=== PATIENT | female | born 1970 | race Caucasian/White ===

== ENCOUNTER 2020-01-24 13:48 | Emergency (ER) | payer MEDICARE, MEDICAID, SELFPAY ==
[2020-01-24 14:28] VITALS: BP 101/57; PULSE 74; RESP 18; TEMP 36.6; O2SAT 96; BMI 26.7
--- NOTE | 2020-01-24 14:59 | XR_ITS ---
EXAMINATION: XR SHOULDER, RIGHT CLINICAL INFORMATION: Pain COMPARISON: Previous chest x-ray November 2018 TECHNIQUE: Three views of the right shoulder. FINDINGS: There is an old healed right distal clavicle fracture. No acute fracture is seen. On the Y-view, the humeral head projects superior to the glenoid. Glenohumeral alignment appears normal on the other 2 views and this may be due to patient positioning. Bone alignment is otherwise normal. There is arthritis at the acromioclavicular joint. There is a thoracic scoliosis. Soft tissues are unremarkable. XR/XR shoulder RT min 2V IMPRESSION: Old healed right distal clavicle fracture. Arthritis at the acromioclavicular joint. High position of the humeral head on the Y-view, question artifactual due to patient positioning. If there is concern for abnormal glenohumeral alignment, additional imaging could be performed.
--- NOTE | 2020-01-24 15:12 | ED.PSYCH ---
HPI - Psych General Chief Complaint: Psychiatric Symptoms Stated Complaint: RIGHT SHOULDER PAIN AFTER FALL DOWN 13 STAIRS Time Seen by Provider: 01/24/20 13:58 Source: patient Mode of arrival: EMS Limitations: other ( developmental delay) History of Present Illness HPI Narrative: patient comes to emergency room complaining of acute on chronic right shoulder pain. Patient states she denies any trauma. However, the reason she came to the emergency room is because the patient was sectioned 12 by [facility] at her [facility]. patient seems to be new at his f[facility] and she is not acting well. Patient has been aggressive, at some point had suicidal ideation although the patient denies it, patient is now under Section 12 waiting to be seen by [facility] and possibly will need inpatient bed search MD complaint: other ( behavioral change) Related Data Previous Rx's Medication Instructions Recorded acetaminophen 650 mg 650 mg PO Q8H PRN #30 tab 01/10/20 tablet,extended release albuterol sulfate 90 mcg/actuation 2 puff INHALATION Q6H PRN #8.5 g 01/10/20 aerosol inhaler ascorbate calcium (vitamin C) 500 500 mg PO DAILY #30 tab 01/10/20 mg tablet atorvastatin 10 mg tablet 10 mg PO DAILY #30 tab 01/10/20 cetirizine 10 mg tablet 10 mg PO DAILY #30 tab 01/10/20 cholecalciferol (vitamin D3) 1,250 1,250 mcg PO QWEEK 30 Days #5 cap 01/10/20 mcg (50,000 unit) capsule fluticasone propionate 110 1 puff INHALATION BID #12 g 01/10/20 mcg/actuation HFA aerosol inhaler gabapentin 100 mg capsule 200 mg PO TID 30 Days #180 cap 01/10/20 lisinopril 10 mg tablet 10 mg PO DAILY #30 tab 01/10/20 omeprazole 20 mg capsule,delayed 20 mg PO DAILY #30 cap 01/10/20 release propranolol 60 mg capsule,24 60 mg PO DAILY #30 cap 01/10/20 hr,extended release psyllium husk (aspartame) 3.4 gram 3.4 g PO DAILY #30 ea 01/10/20 oral powder packet sennosides 8.6 mg tablet 8.6 mg PO DAILY #30 tab 01/10/20 cephalexin 500 mg capsule 500 mg PO BID 10 Days #20 cap 01/18/20 cephalexin 500 mg capsule 500 mg PO BID 10 Days #20 cap 01/18/20 magnesium hydroxide 2,400 mg/10 mL 30 ml PO DAILY PRN #1000 ml 01/18/20 oral suspension Allergies Allergy/AdvReac Type Severity Reaction Status Date / Time oxcarbazepine [Trileptal] Allergy Unknown Unknown Verified 01/22/20 14:17 prednisone Allergy Unknown Unknown Verified 01/22/20 14:17 sulfacetamide Allergy Unknown Unknown Verified 01/22/20 14:17 heparin Allergy Unknown Unknown Uncoded 01/22/20 14:17 Heparin Combination Allergy Unknown Unknown Uncoded 01/22/20 14:17 Review of Systems Review of Systems: Constitutional : No Weight loss, No Fever, No Chills, No Night Sweats, No Fatigue, No Malaise ENT/Mouth : No Hearing loss, No Ear Pain, No Nasal Congestion, No Sinus Pain, No Hoarseness, No sore throat, No Rhinorrhea, No Swallowing Difficulty Eyes: No Eye Pain, No Swelling, No Redness, No Foreign Body, No Discharge, No Vision Changes Cardiovascular : No Chest Pain, No SOB, No Dyspnea on Exertion, No Orthopnea, No Edema, No Palpitations Respiratory : No Cough, No Sputum, No Wheezing, No Smoke Exposure, No Dyspnea Gastrointestinal : No Nausea, No Vomiting, No Diarrhea, No Constipation, No abdominal Pain, No Hematochezia, No Melena Genitourinary : no irregular bleeding, No Dysuria, No Urinary Frequency, No Hematuria, No Urinary Incontinence, No Urgency, No Flank Pain, No Urinary Flow Changes, No Hesitancy Musculoskeletal : acute on chronic right shoulder pain, No Myalgias, No Joint Swelling Skin : No Skin Lesions, No rash Neuro : No Weakness, No Numbness, No Paresthesias, No Loss of Consciousness, No Dizziness, No Headache Psych : No Anxiety/Panic, No Depression, No SI/HI/AH/VH, No Social Issues, Heme/Lymph: No Bruising, No Bleeding,No Lymphadenopathy Endocrine : No Polyuria, No Polydipsia, No Temperature Intolerance Yes all other systems are reviewed and are negative REPLACED BY [facility] Past Medical History Medical History Asthma Essential hypertension Gastro-esophageal reflux Generalized anxiety disorder Hyperlipidemia PTSD (post-traumatic stress disorder) PTSD (post-traumatic stress disorder) Surgical History History of section History of colonoscopy History of craniotomy History of facial surgery History of hernia repair Status post craniectomy Family History Family History (Updated 01/22/20 @ 14:27 by BARBRA BinghamA, [facility]) Father CVD (cardiovascular disease) HTN (hypertension) Mother Bipolar disorder Alcohol abuse History of CVA (cerebrovascular accident) HTN (hypertension) Stroke Maternal Grandmother Cancer Paternal Grandmother Diabetes mellitus Sister No problems noted. Son No problems noted. Social History Social History Smoking Status: Never smoker Use of substances other than those prescribed or required for medical reasons: No Advance Directives: Yes Advance Directives Information Provided: No Advance Directives on File: No Physical Exam Vital Signs: Vital Signs: Vital Signs Temp Pulse Resp BP Pulse Ox 01/24/20 16:38 98.9 F 72 20 122/79 95 01/24/20 14:28 97.8 F 74 18 101/57 L 96 Body Mass Index 26.7 Appearance: Alert. Oriented X3. No acute distress. delayed response, secondary to previous CVA Eyes: Pupils equal, round and reactive to light. ENT: Pharynx normal. Neck: Normal inspection. Neck supple. No lymph nodes noted. No crepitus CVS: Normal heart rate and rhythm. Pulses normal. Normal S1 and S2 Respiratory: No respiratory distress. Breath sounds normal. No Wheezing. No rales Abdomen: Soft and nontender. No rigidity. No distention. good BS x4 Skin: Skin warm and dry. Normal skin color. Normal skin turgor. Extremities: No lower extremity edema. no rash, patient has a chronic contracture of the right arm, unable to hold her right arm up, sequela from CVA Neuro: Oriented X 3. No motor deficit. No sensory deficit. Moving all extermities. No slurred speech. Course Course Course Narrative: x-ray was taken, no acute pathology. Patient is waiting to be see by [facility], patient will likely be an inpatient bed search sign-out given to Dr. Merchant. MDM - Psych Restraints Face to Face Assessment: Face to Face Assessment: Current Situation: After assessment of the patient, a review of the pertinent medical record and a discussion with nursing staff, I feel the patient requires a restrain intervention. Reaction To: [] Medical Condition: [] Behavioral State: [] Continued Need: [] Discharge Plan Discharge Clinical Impression: Adjustment disorder Qualifiers: Adjustment disorder type: unspecified type Qualified Code(s): F43.20 - Adjustment disorder, unspecified Prescriptions: No Action Flovent HFA 110 mcg/actuation HFA aerosol inhaler 1 puff inhalation BID Qty: 12 RF: 8 cholecalciferol (vitamin D3) 1,250 mcg (50,000 unit) capsule 1,250 mcg PO QWEEK 30 Days Qty: 5 RF: 6 gabapentin 100 mg capsule 200 mg PO TID 30 Days Qty: 180 RF: 5 ascorbate calcium (vitamin C) 500 mg tablet 500 mg PO DAILY Qty: 30 RF: 6 Metamucil Fiber Singles 3.4 gram powder in packet 3.4 g PO DAILY Qty: 30 RF: 5 albuterol sulfate [Ventolin HFA] 90 mcg/actuation HFA aerosol inhaler 2 puff inhalation Q6H PRN (Reason: shortness of breath or wheezing) Qty: 8.5 RF: 5 propranolol 60 mg capsule,extended release 24 hr 60 mg PO DAILY Qty: 30 RF: 5 lisinopril 10 mg tablet 10 mg PO DAILY Qty: 30 RF: 5 atorvastatin 10 mg tablet 10 mg PO DAILY Qty: 30 RF: 5 omeprazole 20 mg capsule,delayed release(DR/EC) 20 mg PO DAILY Qty: 30 RF: 5 acetaminophen [Tylenol Arthritis Pain] 650 mg tablet extended release 650 mg PO Q8H PRN (Reason: temperature greater than 100 degrees F, headache) Qty: 30 RF: 5 cetirizine 10 mg tablet 10 mg PO DAILY Qty: 30 RF: 5 sennosides [Natural Senna Laxative] 8.6 mg tablet 8.6 mg PO DAILY Qty: 30 RF: 5 magnesium hydroxide [Milk Of Magnesia Concentrated] 2,400 mg/10 mL suspension 30 ml PO DAILY PRN (Reason: constipation) Qty: 1000 RF: 5 cephalexin [Keflex] 500 mg capsule 500 mg PO BID 10 Days Qty: 20 RF: 0 cephalexin [Keflex] 500 mg capsule 500 mg PO BID 10 Days Qty: 20 RF: 0
--- NOTE | 2020-01-24 15:13 | PC.NURSE ---
[phone] berenice kim) bon, brother in law
--- NOTE | 2020-01-24 15:59 | PC.NURSE ---
INTRODUCED SELF TO PT. A&OX3, SPEAKS IN SLURRED FUL LSENTENCES. RESIDUAL SXS FROM CVA IN 2015, RIGHT SIDED WEAKNESS/PARALYSIS. PT CALM &COOPERATIVE. REPORTS BEING HERE FOR BEHAVIOURAL ISSUES AT ALF. HAS BEEN THERE FOR 4 WKS. DENIES SI/HI AT THIS TIME. RECENT INC IN DEPRESSION. TYPICALLY USES WHEELCHAIR. GIVEN SANDWICH AND LIZ ARNIE REQUESTED.
--- NOTE | 2020-01-24 16:01 | PC.NURSE ---
SECTION 12 BY PRISON
--- NOTE | 2020-01-24 16:25 | PC.NURSE ---
faxed & called to [facility]
[2020-01-24 16:38] VITALS: BP 122/79; PULSE 72; RESP 20; TEMP 37.2; O2SAT 95
[2020-01-24 18:53] LABS: Glucose Urine UA NEG (NEG); Leukocyte Esterase Urine NEG (NEG); Nitrite Urine NEG (NEG); PH 5.5 (5.0-8.0); Specific Gravity - Urine <= 1.005 (1.005-1.025); Urine Blood NEG (NEG); Urine Ketones NEG (NEG); Urine Protein NEG (NEG-TRACE)
[2020-01-24 18:55] LABS: Appearance Urine CLEAR; Color Urine YELLOW
[2020-01-24 19:41] VITALS: BP 100/57; PULSE 52; RESP 18; TEMP 36.1; O2SAT 95
--- NOTE | 2020-01-24 20:19 | MHC.CARE ---
CARE team contacted [facility], who report this patient was seen in the community and is already an inpatient bedsearch. Is here for medical clearance and to await placement. Was seen around 1220 today. CARE team updated patient's nurse.
--- NOTE | 2020-01-24 20:26 | PC.NURSE ---
Per [facility]/ SWAT team pt was seen in community and is an inpatient bed search. Pt given food and gingerale as requested, denies other complaints.
[2020-01-25] VITALS (14 sets, daily range): BP systolic 108–134; BP diastolic 63–81; PULSE 62–78; RESP 15–18; TEMP 36.1–37.1; O2SAT 94–99
[2020-01-25] MEDS: lamoTRIgine 100 MG TABLET 400 MG PO ×2 (00:15→09:05)
[2020-01-25] MEDS: lamoTRIgine 100 MG TABLET PO ×2 (00:16→09:05)
[2020-01-25] MEDS: Mirtazapine 15 MG TABLET PO (00:16)
[2020-01-25] MEDS: Gabapentin 100 MG CAPSULE 200 MG PO ×3 (00:17→14:54)
[2020-01-25] MEDS: OLANZapine 5 MG TABLET PO (00:17)
[2020-01-25] MEDS: Doxazosin Mesylate 1 MG TABLET PO (02:00)
--- NOTE | 2020-01-25 03:10 | PC.NURSE ---
Back timed- Pt became upset and tearful around approx 0200, states she doesnt know what is happening and why she is at the hospital, asking to go home. Pt re-oriented, explained process of inpatient bedsearch, and offered comforting measures. Pt given fluids and cold compress for forehead. Pt given tylenol for generalized pain.
[2020-01-25] MEDS: Acetaminophen 325 MG TABLET 650 MG PO (03:17)
--- NOTE | 2020-01-25 07:59 | PC.NURSE ---
Pt eating breakfast at this time. Calm and cooperative. Plan of bedsearch discussed with pt, however pt denies si or hi at this time. Difficult to understand, pt noted with garbled speech and word salad at times but does communicate this is baseline for her since CVA with right sided weakness. Tolerating breakfast well. Purewick in use and approx 200ml of dark urine in canister at this time.Pt obsever for safety
[2020-01-25] MEDS: Propranolol HCL LA 60 MG CAP.SA.24H PO (09:03)
[2020-01-25] MEDS: lisinopriL 10 MG TABLET PO (09:06)
[2020-01-25] MEDS: Loratadine 10 MG TABLET PO (09:07)
[2020-01-25] MEDS: Sennosides 8.6 MG TABLET PO (09:08)
[2020-01-25] MEDS: Sertraline HCL 25 MG TABLET PO (09:08)
[2020-01-25] MEDS: Omeprazole 20 MG CAPSULE.DR PO (09:08)
[2020-01-25] MEDS: Atorvastatin Calcium 10 MG TABLET PO (09:08)
[2020-01-25] MEDS: cephALEXin 500 MG CAPSULE PO (09:09)
[2020-01-25] MEDS: Ascorbic Acid 500 MG TABLET PO (09:09)
--- NOTE | 2020-01-25 10:23 | PC.NURSE ---
Pt repositioned on side, purewick changed.
--- NOTE | 2020-01-25 14:08 | PC.NURSE ---
Speaking with Bill on phone at this time
--- NOTE | 2020-01-25 16:54 | PC.NURSE ---
[facility] by [facility], confirms pt is section 12 bedsearch. Reports intermittent SI to [facility] and states difficulty with adjusting to new situations and only at [facility] x 3 weeks. No plan for SI per [facility]. Pt observer maintained for saefty
--- NOTE | 2020-01-25 20:51 | PC.NURSE ---
PT REMAINS ON 1:1 OBS. PT CALM AND COOPERATIVE IN ROOM AT THIS TIME. DENIES COMPLAINTS
--- NOTE | 2020-01-25 23:00 | PC.NURSE ---
pt incontinent of urine, cleaned and changed. new periwick applied. pt is confused, not making sense at this time. rambling about things that are not pertinent to events at hand.
[2020-01-26] VITALS (7 sets, daily range): BP systolic 107–124; BP diastolic 67–74; PULSE 74–81; RESP 15–22; TEMP 36.5–36.9; O2SAT 93–97
--- NOTE | 2020-01-26 03:35 | PC.NURSE ---
Patient's last night 2100 medication were not administered, attempted to check nurses's note, no notes pertaining to HS medication found, patient could have refused the meds but she is so confused to answer the question. Charge nurse notified.
[2020-01-26] MEDS: Gabapentin 100 MG CAPSULE 200 MG PO ×3 (09:00→22:02)
[2020-01-26] MEDS: Omeprazole 20 MG CAPSULE.DR PO (09:03)
[2020-01-26] MEDS: lamoTRIgine 100 MG TABLET PO ×2 (09:03→22:06)
[2020-01-26] MEDS: lamoTRIgine 100 MG TABLET 400 MG PO ×2 (09:05→22:03)
[2020-01-26] MEDS: Atorvastatin Calcium 10 MG TABLET PO (09:06)
[2020-01-26] MEDS: Loratadine 10 MG TABLET PO (09:06)
[2020-01-26] MEDS: Ascorbic Acid 500 MG TABLET PO (09:06)
[2020-01-26] MEDS: lisinopriL 10 MG TABLET PO (09:06)
[2020-01-26] MEDS: Sennosides 8.6 MG TABLET PO (09:06)
[2020-01-26] MEDS: cephALEXin 500 MG CAPSULE PO ×2 (09:06→22:02)
[2020-01-26] MEDS: Sertraline HCL 25 MG TABLET PO (09:06)
[2020-01-26] MEDS: Propranolol HCL LA 60 MG CAP.SA.24H PO (09:43)
--- NOTE | 2020-01-26 10:09 | PC.NURSE ---
URINE LEAKING AROUND PUREWICK. PUREWICK REPLACED. PT CLEANED AND LINENS CHANGED.
[2020-01-26] MEDS: diphenhydrAMINE HCL 25 MG TABLET 50 MG PO (10:45)
--- NOTE | 2020-01-26 10:51 | PC.NURSE ---
Addendum entered by Katelin Davalos 01/26/20 12:11: PT HAS RAISED RED HIVES OVER LEGS, ABD, CHEST, AND A FEW TO LOWER ARMS. PER PT, THESE ARE NOT NEW, BUT C/O ITCHINESS AND THEM GETTING WORSE NO OTHER S/SX OF ALLERGIC REACTION. PROVIDER AWARE AND EVALUATED PT. Original Note: pt c/o itchiness to rash over legs; medicated with benedryl per emar.
--- NOTE | 2020-01-26 12:00 | PC.NURSE ---
PT HAD BOWEL MOVEMENT; MODERATE ABOUT OF SEMI-FORMED BROWN STOOL. PUREWICK REPLACED, PT CLEANED, LINENS CHANGED. PUREWICK DRAINING CLEAR YELLOW URINE.
--- NOTE | 2020-01-26 12:18 | PC.NURSE ---
PT CONTINUES TO COMPLAIN OF ITCHINESS TO RED WELTS/HIVES. CARMEN OCTOBER AWARE AND PLAN TO MEDICATED WITH SOLUMEDROL, PREDNISONE. IV ACCESS ESTABLISHED PER PROVIDER INSTRUCTION.
[2020-01-26] MEDS: Famotidine/PF 20 MG/2 ML VIAL IVPUSH (12:40)
[2020-01-26] MEDS: methylPREDNISolone Sod Succ/PF 125 MG/2 ML VIAL IVPUSH (12:40)
--- NOTE | 2020-01-26 13:16 | PC.NURSE ---
patients Po christianson, , would like a call back from nurse when available.
--- NOTE | 2020-01-26 14:00 | PC.NURSE ---
update given to pt's , with pt's permission.
--- NOTE | 2020-01-26 14:25 | PC.NURSE ---
pt reports decrease in itchiness to red patches over body. patches appears less raised compared to prior to pepcid, solumedrol.
--- NOTE | 2020-01-26 14:47 | PC.NURSE ---
pt had a large bm and rajat wick container emptied of 450ml of urine
[2020-01-26] MEDS: OLANZapine 5 MG TABLET PO (22:04)
[2020-01-26] MEDS: Doxazosin Mesylate 1 MG TABLET PO (22:47)
[2020-01-26] MEDS: Mirtazapine 15 MG TABLET PO (22:58)
[2020-01-26] MEDS: LORazepam 0.5 MG TABLET PO (23:20)
--- NOTE | 2020-01-26 23:20 | PC.NURSE ---
PATIENT WAS AGITATED AND PROVIDER GAVE AN ORDER FOR 1 MG ATIVAN PO. ATIVAN PRN WAS DOCUMENTED IN ERROR BUT NOT GIVEN OR REMOVED FROM [facility]IS. PATIENT WAS GIVEN PRESCRIBED MEDICATION OF LORAZEPAM 1 MG PO NOTED IN EMAR.
[2020-01-26] MEDS: LORazepam 1 MG TABLET PO (23:42)
[2020-01-27] VITALS (13 sets, daily range): BP systolic 89–124; BP diastolic 48–78; PULSE 72–86; RESP 15–20; TEMP 36.7; O2SAT 94–97
--- NOTE | 2020-01-27 00:16 | PC.NURSE ---
PATIENT BECAME AGITATED FOR REASONS THAT WERE NOT CLEAR. PATIENT BEGAN BY SAYING SHE WANTED THE CURTAIN CLOSED AND GOT UPSET WHEN I TOLD HER THAT SHE NEEDED TO HAVE IT OPEN BECAUSE SHE WAS ON BECAUSE SHE HAD SUICIDAL IDEATION UPON ARRIVAL TO ED ON WEDNESDAY. SHE THEN STATED THAT SHE WANTED TO HAVE HER BED TURNED AROUND. PATIENT'S BED TURNED AROUND AND PATIENT STILL UPSET. PATIENT MEDICATED WITH ATIVAN FOR AGITATION. AFTER ABOUT 1/2 HOUR PATIENT FINALLY AGREED TO HAVE HER BED TURNED AROUND AND LINENS AND BRANDAN WERE CHANGED. PATIENT SEEM TO SETTLE DOWN AND DE-ESCALATED.
[2020-01-27] MEDS: Sennosides 8.6 MG TABLET PO (08:24)
[2020-01-27] MEDS: cephALEXin 500 MG CAPSULE PO ×2 (08:24→20:28)
[2020-01-27] MEDS: lamoTRIgine 100 MG TABLET PO ×2 (08:24→20:29)
[2020-01-27] MEDS: Ascorbic Acid 500 MG TABLET PO (08:24)
[2020-01-27] MEDS: Omeprazole 20 MG CAPSULE.DR PO (08:24)
[2020-01-27] MEDS: Gabapentin 100 MG CAPSULE 200 MG PO ×3 (08:25→20:28)
[2020-01-27] MEDS: Sertraline HCL 25 MG TABLET PO (08:25)
[2020-01-27] MEDS: lisinopriL 10 MG TABLET PO (08:25)
[2020-01-27] MEDS: lamoTRIgine 100 MG TABLET 400 MG PO ×2 (08:25→20:29)
[2020-01-27] MEDS: Atorvastatin Calcium 10 MG TABLET PO (08:25)
[2020-01-27] MEDS: Loratadine 10 MG TABLET PO (10:40)
[2020-01-27] MEDS: Propranolol HCL LA 60 MG CAP.SA.24H PO (10:40)
--- NOTE | 2020-01-27 10:57 | PC.NURSE ---
patient linens and clothing changed.
--- NOTE | 2020-01-27 17:04 | PC.NURSE ---
JASONN called and talked to patient over the phone for Re-eval, to continue bed search.
[2020-01-27] MEDS: Doxazosin Mesylate 1 MG TABLET PO (20:28)
[2020-01-27] MEDS: Mirtazapine 15 MG TABLET PO (20:28)
[2020-01-27] MEDS: OLANZapine 5 MG TABLET PO (20:29)
[2020-01-28] VITALS (7 sets, daily range): BP systolic 86–108; BP diastolic 55–66; PULSE 76–80; RESP 12–16; TEMP 36.8; O2SAT 93–95
--- NOTE | 2020-01-28 08:30 | PC.NURSE ---
pt ambulated to restroom using 2 hands on assist w slow, steady gait. pt had large, formed bm. sts feeling much relief. ambulated back to room w/o incident. bed linens replaced. pt very appreciative, pleasant affect w this rn. ate all of breakfast, wctm.
[2020-01-28] MEDS: Fluticasone Propionate 100 MCG BLST.W.DEV 1 PUFF INHALE ×2 (09:22→20:22)
[2020-01-28] MEDS: Gabapentin 100 MG CAPSULE 200 MG PO ×3 (09:24→21:19)
[2020-01-28] MEDS: Loratadine 10 MG TABLET PO (09:24)
[2020-01-28] MEDS: Atorvastatin Calcium 10 MG TABLET PO (09:24)
[2020-01-28] MEDS: Sertraline HCL 25 MG TABLET PO (09:24)
[2020-01-28] MEDS: Sennosides 8.6 MG TABLET PO (09:24)
[2020-01-28] MEDS: Ascorbic Acid 500 MG TABLET PO (09:24)
[2020-01-28] MEDS: lamoTRIgine 100 MG TABLET 400 MG PO ×2 (09:25→21:19)
[2020-01-28] MEDS: lamoTRIgine 100 MG TABLET PO ×2 (09:26→21:19)
[2020-01-28] MEDS: lisinopriL 10 MG TABLET PO (09:26)
[2020-01-28] MEDS: Omeprazole 20 MG CAPSULE.DR PO (09:26)
[2020-01-28] MEDS: Propranolol HCL LA 60 MG CAP.SA.24H PO (09:53)
[2020-01-28] MEDS: cephALEXin 500 MG CAPSULE PO ×2 (10:03→21:19)
--- NOTE | 2020-01-28 10:16 | PC.NURSE ---
PT INCONTINENT OF URINE, LINENS REPLACED, PUREWICK IN PLACE AT THIS TIME.
[2020-01-28] MEDS: diphenhydrAMINE HCL 25 MG TABLET PO ×2 (12:29→17:10)
--- NOTE | 2020-01-28 12:42 | PC.NURSE ---
awaiting hydrocortisone cream from pharmacy, pt ambulated to restroom again using 2 assist w slow steady gait.
[2020-01-28] MEDS: Hydrocortisone 1 % Cream 28.35 GM TUBE 1 APPL TOPICAL (15:10)
--- NOTE | 2020-01-28 15:12 | PC.NURSE ---
pt given ordered cream for itching, pt very appreciative. pt continues to have bright affect, no apparent distress att.
--- NOTE | 2020-01-28 17:18 | PC.NURSE ---
pt given benadryl per request for itching. pt now has prn order for benadryl as needed. wctm for effectiveness.
--- NOTE | 2020-01-28 18:19 | PC.NURSE ---
pt sitting up eating dinner, nad. vacuum canister emptied of urine from [employer],
--- NOTE | 2020-01-28 20:00 | PC.NURSE ---
pt awake and alert, requested to use bathroom. pt assisted with stand and pivot to wc and to bathroom. pt not safe ambulating, angle of right foot out of brace. linen and gown changed. pt refusing to use peerwick.
[2020-01-28] MEDS: Mirtazapine 15 MG TABLET PO (21:19)
[2020-01-28] MEDS: OLANZapine 5 MG TABLET PO (21:19)
--- NOTE | 2020-01-28 21:38 | PC.NURSE ---
pt's BP STILL BORDERLINE, WILL REASSESS EVERY HOUR FOR THE NEXT FEW.
[2020-01-29] VITALS (8 sets, daily range): BP systolic 103–119; BP diastolic 48–71; PULSE 72–84; RESP 16–19; TEMP 36.6–37.2; O2SAT 94
--- NOTE | 2020-01-29 00:28 | PC.NURSE ---
pt assist stand and pivot to wc to bathroom and back.
--- NOTE | 2020-01-29 06:35 | PC.NURSE ---
pt needs assist to stand and pivot to wc then to bathroom. hemiparesis/paralysis on right side. do not allow pt to ambulate to bathroom. she has used bathroom x3 last night, no incontinence.
[2020-01-29] MEDS: Fluticasone Propionate 100 MCG BLST.W.DEV 1 PUFF INHALE ×2 (08:16→19:55)
[2020-01-29] MEDS: Propranolol HCL LA 60 MG CAP.SA.24H PO (08:29)
[2020-01-29] MEDS: lamoTRIgine 100 MG TABLET PO ×2 (08:30→20:31)
[2020-01-29] MEDS: lamoTRIgine 100 MG TABLET 400 MG PO ×2 (08:30→20:31)
[2020-01-29] MEDS: lisinopriL 10 MG TABLET PO (08:33)
[2020-01-29] MEDS: Loratadine 10 MG TABLET PO (08:34)
[2020-01-29] MEDS: Sennosides 8.6 MG TABLET PO (08:34)
[2020-01-29] MEDS: Atorvastatin Calcium 10 MG TABLET PO (08:34)
[2020-01-29] MEDS: Sertraline HCL 25 MG TABLET PO (08:34)
[2020-01-29] MEDS: Ascorbic Acid 500 MG TABLET PO (08:35)
[2020-01-29] MEDS: Omeprazole 20 MG CAPSULE.DR PO (08:35)
[2020-01-29] MEDS: Gabapentin 100 MG CAPSULE 200 MG PO ×3 (08:38→20:32)
--- NOTE | 2020-01-29 08:39 | PC.NURSE ---
Pt up to bathroom to void with tech and wheelchair, pivoted to wheelchair and steady during pivot. AM meds administered without incident. Cephalexin held as 10 days from start date has been completed, Keyana MORALES to d/c order Per Keyana MORALES plan for psychiatric nurse practitioner to eval pt in ed to assess if pt able to return back to long-term. Pt aware/agreeable
--- NOTE | 2020-01-29 12:33 | PC.NURSE ---
patient alert to baseline, patient a little agitated/upset as she was trying to state that she wanted the lights on, turned up the lights and redirected the patient, patient gave order for what she wanted for dinner and channel was changed to watch something other than sports, will continue to monitor.
--- NOTE | 2020-01-29 14:24 | PC.NURSE ---
christa from [facility] called wanting an update about patient, update given.
--- NOTE | 2020-01-29 15:13 | PC.NURSE ---
patient medicated per order and given a snack per patient request
--- NOTE | 2020-01-29 18:22 | MHC.CARE ---
CARE team provided support with communicating between [facility] crisis team, PIPE Bray, and pt's in order to clarify timelines for assessments and discuss current plan of care. [facility] reported that they will send a clinician to complete a MSU with pt during 3rd shift, psych consult will take place in the morning, and pt's is in agreement that while he is concerned about his 's stay in the ED being prolonged beyond what is necessary that the best approach will be to address possible change of disposition and treatment planning in the morning. ED provider updated re: communications. Section 12a today, and there is no reported plan for it to be renewed at this time.
--- NOTE | 2020-01-29 18:46 | PC.NURSE ---
called and waned to speak with patient, patient given phone and has been happily speaking with him, patient ate 100% of dinner, will obtain vitals after patient is off phone.
--- NOTE | 2020-01-29 19:15 | PC.NURSE ---
aide was here to speak with patient. at the time they were hear, patient denied any SI
[2020-01-29] MEDS: OLANZapine 5 MG TABLET PO (20:30)
[2020-01-29] MEDS: Mirtazapine 15 MG TABLET PO (20:30)
[2020-01-29] MEDS: Doxazosin Mesylate 1 MG TABLET PO (20:32)
--- NOTE | 2020-01-29 21:47 | PC.NURSE ---
patient alert &oriented x2 p/p, patient took meds whole with soda, patient was oob with assist stand/pivot to wheelchair and to bathroom, patient had no c/o pain or discomfort, sitter at bedside, will continue to monitor.
--- NOTE | 2020-01-29 23:00 | PC.NURSE ---
PILY BLOCK ASSUMES CARE OF PATIENT AT THIS TIME FROM PILY BALDWIN. SITTER AT BEDSIDE. WILL CONTINUE TO MONITOR.
--- NOTE | 2020-01-29 23:35 | PC.NURSE ---
PATIENT SLEEPING AT THIS TIME, NO APPARENT DISTRESS NOTED. SITTER REMAINS AT BEDSIDE. WILL CONTINUE TO MONITOR.
[2020-01-30] VITALS (8 sets, daily range): BP systolic 104–115; BP diastolic 55–73; PULSE 70–81; RESP 16–20; TEMP 36.6–37; O2SAT 94–98
[2020-01-30] MEDS: lamoTRIgine 100 MG TABLET 400 MG PO ×2 (08:37→20:30)
[2020-01-30] MEDS: lamoTRIgine 100 MG TABLET PO ×2 (08:37→20:30)
[2020-01-30] MEDS: Loratadine 10 MG TABLET PO (08:38)
[2020-01-30] MEDS: Atorvastatin Calcium 10 MG TABLET PO (08:38)
[2020-01-30] MEDS: Ascorbic Acid 500 MG TABLET PO (08:39)
[2020-01-30] MEDS: Gabapentin 100 MG CAPSULE 200 MG PO ×3 (08:39→20:32)
[2020-01-30] MEDS: lisinopriL 10 MG TABLET PO (08:39)
[2020-01-30] MEDS: Sertraline HCL 25 MG TABLET PO (08:40)
[2020-01-30] MEDS: Sennosides 8.6 MG TABLET PO (08:40)
[2020-01-30] MEDS: Omeprazole 20 MG CAPSULE.DR PO (08:40)
[2020-01-30] MEDS: Propranolol HCL LA 60 MG CAP.SA.24H PO (08:41)
[2020-01-30] MEDS: Fluticasone Propionate 100 MCG BLST.W.DEV 1 PUFF INHALE ×2 (08:42→20:34)
--- NOTE | 2020-01-30 09:08 | PC.NURSE ---
[facility] informed of need for re eval, pt wants to go home and denies si
--- NOTE | 2020-01-30 09:50 | PC.NURSE ---
Patient received correct dose of ergocalciferol on Wednesday administered by Froylan NASCIMENTO. Given 1 capsule at 1.25mg.
--- NOTE | 2020-01-30 12:59 | PC.NURSE ---
DANN Hernandez- the volunteer services manager from [facility] called- contact number is [phone], he is interested in setting up a planning meeting for the patient for [facility], he also wishes to have her patient stay records sent to him but would like a call back, will notify case management.
--- NOTE | 2020-01-30 13:31 | PC.NURSE ---
Addendum entered by Antoinette Cheek 01/30/20 13:36: marjan stated that if the physician or psych consult clears the patient for discharge back to detention to just call N back and let them now the number to call back is [phone] Original Note: case advocate stated that N must be called, called [facility]- spoke with haim, she stated that she has spoken with David earlier this morning and told him that the clinician will do a re-eval and [facility] will notify him to coordinate things further. [facility] has not seen the patient as of yet to do the re-eval today.
--- NOTE | 2020-01-30 13:40 | PC.NURSE ---
psych Shantal from psych is here to speak with patient
--- NOTE | 2020-01-30 14:01 | PM.PSYCN ---
History of Present Illness Chief Complaint: RIGHT SHOULDER PAIN AFTER FALL DOWN 13 STAIRS Reason for Consult: Disposition recommendation Requesting physician: Keyana Nelson Discussed with referring provider: Yes Sources of Information: patient interviewed and chart reviewed HPI Narrative: Patient is a 49 year old female who resides at nursing home, currently in main ED awaiting psychiatric admission following aggressive behaviors and suicidal statements at nursing home. DDS client. has been at nursing home a little over a week. Pt was initially assessed by crisis team several days ago who recommended psychiatric admission. Since time of initial eval, patient has been reported to have been in behavioral control, denies suicidal ideation, and asking to be discharged. Consult requested as it is unclear when crisis evaluation team will be available to reassess patient. Pt seen in room 13 of main ED. Awake, alert and engaged in interview. Pt very bright and pleasant, some challenges for this administrative underwriter to fully understand patient at times due to speech/articulation impairment. Pt able to express that she has no thoughts of harming herself or others, acknowledges that she was upset in the moment, but I don;t feel that way anymore . Discussed alternatives when feeling upset or angry and patient referred to having goals and using those as well as talking to someone at the residence. Past Psychiatric History: Not reviewed Crisis evaluation unavailable at time of interview It is noted that patient is connected to outpt services Medical Evaluation Reviewed: Yes Review of Systems Psychiatric: Denies depression, Denies hopelessness, Denies irritability, Denies homicidal ideation and Denies suicidal ideation [facility] Medical History Asthma Essential hypertension Gastro-esophageal reflux Generalized anxiety disorder Hyperlipidemia PTSD (post-traumatic stress disorder) PTSD (post-traumatic stress disorder) Surgical History History of section History of colonoscopy History of craniotomy History of facial surgery History of hernia repair Status post craniectomy Diagnostics Vital Signs (24Hr): Vital Signs - 24 hr 01/29/20 18:49 01/29/20 20:32 01/30/20 00:00 Temperature 97.9 F Pulse Rate 84 79 Respiratory Rate 18 16 Blood Pressure 119/62 104/57 L Pulse Oximetry 94 01/30/20 08:39 01/30/20 08:41 11/03/20 08:46 Temperature Pulse Rate 81 81 81 Respiratory Rate Blood Pressure 115/73 115/73 115/73 Pulse Oximetry 98 01/30/20 11:36 Temperature 98.6 F Pulse Rate 77 Respiratory Rate 18 Blood Pressure 109/68 Pulse Oximetry 95 Body Mass Index 26.7 Imaging Radiology Impressions: ITS Impressions Shoulder X-Ray 01/24/20 14:59 IMPRESSION: Old healed right distal clavicle fracture. Arthritis at the acromioclavicular joint. High position of the humeral head on the Y-view, question artifactual due to patient positioning. If there is concern for abnormal glenohumeral alignment, additional imaging could be performed. Mental Status Exam Mental Status Exam Patient Appearance: Appropriate Patient Orientation: Person, Place and Situation Level of Consciousness: Awake and Appropriate Patient Behavior: Appropriate Mood Description: Calm and Appropriate Affect Description: Calm and Appropriate Speech Pattern: Appropriate and Garbled Delusions: Not Present Thought Process: Goal Oriented Thought Content: positive for [place] Judgement: Fair Medications Medications Current Medications Generic Name Dose Route Start Last Admin Trade Name Freq PRN Reason Stop Dose Admin Acetaminophen 650 mg 01/25/20 08:33 Acetaminophen 325 Mg Tablet PO Q8H PRN temperature greater than 100 degrees F, headache Albuterol Sulfate 2 puff 01/24/20 21:55 Albuterol Sulfate 90 Mcg 8 Gm Inhaler INHALE Q6H PRN shortness of breath or wheezing Ascorbic Acid 500 mg 01/25/20 09:00 01/30/20 08:39 Ascorbic Acid 500 Mg Tablet PO 500 mg DAILY SARA Administration Atorvastatin Calcium 10 mg 01/25/20 09:00 01/30/20 08:38 Atorvastatin Calcium 10 Mg Tablet PO 10 mg DAILY SARA Administration Diphenhydramine HCl 25 mg 01/28/20 17:02 Diphenhydramine Hcl 25 Mg Tablet PO TID PRN Itching Doxazosin Mesylate 1 mg 01/24/20 22:00 01/29/20 20:32 Doxazosin Mesylate 1 Mg Tablet PO 1 mg BEDTIME SARA Administration Protocol Ergocalciferol 1.25 mg 02/04/20 10:00 Ergocalciferol (Vitamin D2) 1.25 Mg Capsule PO Wilder@1000 SARA Fluticasone Propionate 1 puff 01/25/20 20:00 01/30/20 08:42 Fluticasone Propionate 100 Mcg Blst.W.Dev INHALE 1 puff RBID SARA Administration Gabapentin 200 mg 01/24/20 22:00 01/30/20 08:39 Gabapentin 100 Mg Capsule PO 200 mg TID SARA Administration Hydrocortisone 1 appl 01/28/20 12:20 01/28/20 15:10 Hydrocortisone 1 % Cream 28.35 Gm Tube TOPICAL 1 appl BID PRN Administration Hives Protocol Lamotrigine 100 mg 01/24/20 22:00 01/30/20 08:37 Lamotrigine 100 Mg Tablet PO 100 mg BID SARA Administration Lamotrigine 400 mg 01/24/20 22:00 01/30/20 08:37 Lamotrigine 100 Mg Tablet PO 400 mg BID SARA Administration Lisinopril 10 mg 01/25/20 09:00 01/30/20 08:39 Lisinopril 10 Mg Tablet PO 10 mg DAILY SARA Administration Protocol Loratadine 10 mg 01/25/20 09:00 01/30/20 08:38 Loratadine 10 Mg Tablet PO 10 mg DAILY SARA Administration Magnesium Hydroxide 30 ml 01/25/20 08:32 Milk Of Magnesia 30 Ml Oral.Susp PO DAILY PRN constipation Mirtazapine 15 mg 01/26/20 22:30 01/29/20 20:30 Mirtazapine 15 Mg Tablet PO 15 mg BEDTIME SARA Administration Olanzapine 5 mg 01/24/20 22:00 01/29/20 20:30 Olanzapine 5 Mg Tablet PO 5 mg BEDTIME SARA Administration Omeprazole 20 mg 01/25/20 09:00 01/30/20 08:40 Omeprazole 20 Mg Capsule.Dr PO 20 mg DAILY SARA Administration Pharmacy Consult 1 each 01/24/20 19:16 Consult Rx Perform Med Rec MISCELLANE ONCE PRN Consult order Propranolol HCl 60 mg 01/25/20 09:00 01/30/20 08:41 Propranolol Hcl La 60 Mg Cap.Sa.24h PO 60 mg DAILY SARA Administration Protocol Psyllium Hydrophilic Mucilloid 3.4 gm 01/25/20 09:00 01/30/20 08:43 Psyllium Seed 3.4 Gm Powd.Pack PO 3.4 gm DAILY SARA Administration Senna 8.6 mg 01/25/20 09:00 01/30/20 08:40 Sennosides 8.6 Mg Tablet PO 8.6 mg DAILY SARA Administration Sertraline HCl 25 mg 01/25/20 09:00 01/30/20 08:40 Sertraline Hcl 25 Mg Tablet PO 25 mg DAILY SARA Administration Allergies Allergies Allergy/AdvReac Type Severity Reaction Status Date / Time oxcarbazepine [Trileptal] Allergy Unknown Unknown Verified 01/22/20 14:17 prednisone Allergy Unknown Unknown Verified 01/22/20 14:17 sulfacetamide Allergy Unknown Unknown Verified 01/22/20 14:17 heparin Allergy Unknown Unknown Uncoded 01/22/20 14:17 Heparin Combination Allergy Unknown Unknown Uncoded 01/22/20 14:17 Assessment & Plan Assessment & Plan (1) Adjustment disorder: Status: Acute Code(s): F43.20 - Adjustment disorder, unspecified Recommendations: At this time patient denies thoughts of harming herself or others, future oriented and requesting to go home Risk at this time appears to be low and it would be appropriate to discharge patient back home with current supports already in place Greater than 50% of the session was spent on counseling and/or coordination of care
--- NOTE | 2020-01-30 14:38 | PC.NURSE ---
Spoke to David from S to coordinate discharge, he stated that he reached out to the patients -[facility] and they are unable to take the patient back due to staffing concerns on their end. he has reached out to [facility] and coordinated a meeting between agencies and stated that he will be in touch with the hospital by tomm afternoon to coordinate discharge to [facility] as they are unable to do a discharge today. Again, alcon number is [phone]. Will notify provider as well.
--- NOTE | 2020-01-30 15:26 | MHC.CARE ---
CARE team got MSU from [facility] and placed in ED chart, alerted providers. [facility] reported to t/w they were planning to [facility] pt [facility] with the help of DDS.
--- NOTE | 2020-01-30 16:35 | PC.NURSE ---
patient alert&orientedx2, patient oob with assist to commode, pt has no c/o pain or discomfort, continues to deny SI at this time, will continue to monitor.
[2020-01-30] MEDS: OLANZapine 5 MG TABLET PO (20:30)
[2020-01-30] MEDS: Mirtazapine 15 MG TABLET PO (20:30)
[2020-01-30] MEDS: Doxazosin Mesylate 1 MG TABLET PO (20:30)
--- NOTE | 2020-01-30 22:45 | PC.NURSE ---
patient currently sleeping, will continue to monitor.
[2020-01-31] VITALS (12 sets, daily range): BP systolic 90–132; BP diastolic 49–77; PULSE 70–81; RESP 16–18; TEMP 36.4–36.9; O2SAT 94–99
--- NOTE | 2020-01-31 07:11 | PC.NURSE ---
REPORT TAKEN FROM SEDA NASCIMENTO. PT SITTING UP IN BED EATING BREAKFAST. NO DISTRESS. EATING BREAKFAST AT THIS TIME.
--- NOTE | 2020-01-31 07:18 | PC.NURSE ---
spoke w aide [place] re need for re eval for pt, this was requested yesterday but didnt happen, haim seemed to be unaware that this was requested yesterday, their last eval was on 01/28
[2020-01-31] MEDS: Propranolol HCL LA 60 MG CAP.SA.24H PO (08:15)
[2020-01-31] MEDS: lamoTRIgine 100 MG TABLET PO ×2 (08:17→20:24)
[2020-01-31] MEDS: lamoTRIgine 100 MG TABLET 400 MG PO ×2 (08:17→20:24)
[2020-01-31] MEDS: Sennosides 8.6 MG TABLET PO (08:18)
[2020-01-31] MEDS: lisinopriL 10 MG TABLET PO (08:18)
[2020-01-31] MEDS: Gabapentin 100 MG CAPSULE 200 MG PO ×3 (08:18→20:23)
[2020-01-31] MEDS: Omeprazole 20 MG CAPSULE.DR PO (08:18)
[2020-01-31] MEDS: Ascorbic Acid 500 MG TABLET PO (08:18)
[2020-01-31] MEDS: Loratadine 10 MG TABLET PO (08:18)
[2020-01-31] MEDS: Sertraline HCL 25 MG TABLET PO (08:18)
[2020-01-31] MEDS: Atorvastatin Calcium 10 MG TABLET PO (08:18)
[2020-01-31] MEDS: Hydrocortisone 1 % Cream 28.35 GM TUBE 1 APPL TOPICAL (08:19)
[2020-01-31] MEDS: Fluticasone Propionate 100 MCG BLST.W.DEV 1 PUFF INHALE ×2 (08:25→20:22)
--- NOTE | 2020-01-31 10:55 | MHC.CARE ---
update: Pt is reportedly considered a bedsearch at this time when yesterday CARE team was called by Dora to state pt was working with DDS to go back home. This does not appear to be the dispo according to the bedsearch team today. Pt would benefit from an MSU however N informed a care team staff member than MSU will not be done bedsearch is exhausted. Per yesterday the ED provider was in contact with FRAME BUILDER and ordered a consult based on clinical observations that pts dispo could be discharged home. Per FRAME BUILDER note pt posed low risk for return home to retirement based on that interview at that time. CARE team alerted Behavioral health senior contracts manager.
--- NOTE | 2020-01-31 11:02 | MHC.CARE ---
CARE Team called TARA to follow up on disposition for patient. Spoke with [facility] who is completing the bed search for patient, whom currently 3 different facilities are looking at her records. TARA informed currently is a active bed search for a [facility] admission, and a re-evaluation will be completed when bed search is exhausted as Maria T stated during the call.
--- NOTE | 2020-01-31 11:35 | MHC.CARE ---
Maria T from [facility] called CARE team back with info from yesterday. She reported that she herself informed the ED yesterday that pt was referred to various units and until the bedsearch was exhausted that [facility] would not re-eval pt however of the ED felt strongly that pt was safe to dc back to her nursing home that is their choice and to let N know if they dc pt. She also stated that pts DDS worker told [facility] that he felt pt was safe to dc back to nursing home also. Maria T stated she reviewed this info with a nurse yesterday and then there was no more communication about the case that evening. She was apologetic that the communication has been missed and stated that due to the fact that pt was referred to hospitals currently that the supervisor cook house will not consider the bedsearch exhausted and therefore will not send a clinician out until that point. T/w shared this info w ED provider for reference based on clarification from [facility] this am.
--- NOTE | 2020-01-31 12:08 | PC.NURSE ---
spoke with David regarding DC plan today. stated he is having meeting today with longterm organization regarding pt needs and then will call back RN for plan.
--- NOTE | 2020-01-31 13:59 | PC.NURSE ---
Addendum entered by Nicole Borjas 01/31/20 18:36: spoke with Brunilda earlier this afternoon, she is rn from pt new correction she is supposed to be dc to. pt has been to this correction about 2 months ago and then was moved to one she resides in. Brunilda request is labs could be drawn or PT consults placed for patient as she feels this is not the Cynthia they know at the home. explained to Brunilda that pt appears at baseline and has been medically cleared for quite some time in ED. explained pt physical capabilities at this time and appears baseline for her. Brunilda had stated the earliest possible DC could be Wednesday for patient. relayed this information to Keyana ABRAHAM as well as Ana. Ana had called Brunilda as well and was told she was going to be calling back tonight but this RN has not heard from her. Will pass along to on coming RN, Ana will be calling [facility] in morning for dc plan for patient. Original Note: spoke with David from DDS, stated that worker Brunilda to call this RN regarding pt being transferred to new correction. pt belongings have ti be moved to pt may not be able to be dc to that correction until tomorrow. awaiting to hear from Brunilda.
--- NOTE | 2020-01-31 19:47 | PC.NURSE ---
REPORT TAKEN FROM DIONNE NASCIMENTO, FIRST CONTACT WITH PT. SITTING UP IN BED, SKIN PWD RESPIRATIONS EVEN UNLABORED. DINNER TRAY REMOVED ATE APPROX 50% OF MEAL. ICE WATER PROVIDED. NO COMPLAINTS OFFERED AT THIS TIME. PT OBSERVER AT BEDSIDE FOR SAFETY. POSSIBLE RETURN TO HALFWAY TOMORROW AM.
[2020-01-31] MEDS: OLANZapine 5 MG TABLET PO (20:23)
[2020-01-31] MEDS: Mirtazapine 15 MG TABLET PO (20:24)
--- NOTE | 2020-01-31 20:33 | PC.NURSE ---
FRANCISCO HELD SBP 90. AWARE. ALL OTHER MEDS ADMINISTERED WITHOUT DIFFICULTY.
--- NOTE | 2020-01-31 20:47 | PC.NURSE ---
PATIENT HAD MEDIUM BOWEL MOVEMENT .
--- NOTE | 2020-01-31 23:22 | PC.NURSE ---
REPORT GIVEN TO ORLANDO NASCIMENTO.
--- NOTE | 2020-02-01 01:51 | PC.NURSE ---
PATIENT UP TO COMMODE VOIDED .
[2020-02-01 09:30] VITALS: BP 126/76; PULSE 75
[2020-02-01] MEDS: Sertraline HCL 25 MG TABLET PO (09:30)
[2020-02-01] MEDS: Loratadine 10 MG TABLET PO (09:30)
[2020-02-01] MEDS: lamoTRIgine 100 MG TABLET 400 MG PO (09:30)
[2020-02-01] MEDS: Propranolol HCL LA 60 MG CAP.SA.24H PO (09:30)
[2020-02-01] MEDS: Omeprazole 20 MG CAPSULE.DR PO (09:30)
[2020-02-01] MEDS: lamoTRIgine 100 MG TABLET PO (09:45)
[2020-02-01 09:46] VITALS: BP 126/76; PULSE 75
[2020-02-01] MEDS: Atorvastatin Calcium 10 MG TABLET PO (09:46)
[2020-02-01] MEDS: Ascorbic Acid 500 MG TABLET PO (09:46)
[2020-02-01] MEDS: lisinopriL 10 MG TABLET PO (09:46)
[2020-02-01] MEDS: Sennosides 8.6 MG TABLET PO (09:46)
[2020-02-01] MEDS: Gabapentin 100 MG CAPSULE 200 MG PO ×2 (09:49→16:48)
[2020-02-01] MEDS: Fluticasone Propionate 100 MCG BLST.W.DEV 1 PUFF INHALE ×2 (09:54→20:51)
--- NOTE | 2020-02-01 11:14 | PC.NURSE ---
reached out to care team for retirement contact information.
--- NOTE | 2020-02-01 11:26 | PC.NURSE ---
dashawn from care team will contact care home
--- NOTE | 2020-02-01 11:38 | MHC.CARE ---
CARE Team spoke with Pts former longterm- per longterm CARE Team will need ot speak with to the [facility].. CARE Team awaiting a call back.
[2020-02-01 12:00] VITALS: BP 122/68; PULSE 72; TEMP 36.6
--- NOTE | 2020-02-01 13:02 | MHC.CARE ---
CARE Team received a call from David (S Hand Packer/Packager [phone]) regarding discharge planning. David made aware Pt can't be held over the weekend and ED will need a tentative discharge plan. David to follow up with further information.
--- NOTE | 2020-02-01 13:15 | MHC.CARE ---
CARE Team recieved a call from DDS asking to keep Pt in ED till Wednesday. CARE Team informed DSS we need a tentative discharge plan and Pt can not remain in ED over weekend as its not clinically or medically necessary.
--- NOTE | 2020-02-01 16:13 | MHC.CARE ---
CARE team contacted David @ DDS re: status of finalizing D/C plan for pt to return to [facility] residential program. David reported that during a conversation between pt and the residential program's career development manager pt stated that she wouldn't return to that program claiming that she wasn't aware that she would be going there. Per David, pt had been informed of this by several people since Wednesday01/30/20. Current plan is for David and pt's , Po, to contact pt via 3way phone call to discuss the plan for pt to return to the program, which tentative (hopeful) D/C for Wednesday02/02/20 at 3PM. It was reiterated that pt cannot continue to board in the ED over the weekend, due to the lack of a medical necessity to do so. If a return call for update is not received from David by 4:45PM, this advertising copy writer will reach out again for status update. David did not have address or contact information for [facility]'s [facility] program. If/when information is requiredLoyd Crockett, Director of Res Services at [facility], can be contacted at [phone]
--- NOTE | 2020-02-01 17:03 | MHC.CARE ---
CARE team followed up again with David from [facility]. Phone call with pt went well, and she is agreeable for returning to the program. Program is located on [facility] in [facility] David will be following up with CARE team in the morning with the specific house number and contact information for the program, as well as what time the pt will be able to D/C from ED tomorrow morning for re-admission to the [facility] program.
[2020-02-01 17:28] VITALS: PULSE 76; TEMP 36.6
[2020-02-01 23:55] VITALS: BP 103/73; PULSE 76; RESP 18; TEMP 36.7; O2SAT 94
[2020-02-02] MEDS: OLANZapine 5 MG TABLET PO
[2020-02-02] MEDS: Gabapentin 100 MG CAPSULE 200 MG PO ×2 (00:01→09:30)
[2020-02-02] MEDS: Mirtazapine 15 MG TABLET PO (00:01)
[2020-02-02] MEDS: lamoTRIgine 100 MG TABLET PO ×2 (00:01→09:28)
[2020-02-02] MEDS: lamoTRIgine 100 MG TABLET 400 MG PO ×2 (00:03→09:29)
[2020-02-02 00:04] VITALS: BP 113/68; PULSE 78
[2020-02-02] MEDS: Doxazosin Mesylate 1 MG TABLET PO (00:04)
--- NOTE | 2020-02-02 03:51 | PC.NURSE ---
pt is sleeping sitter present, rr even and reg no s/s of distress. plan of care. [facility] tomorrow
--- NOTE | 2020-02-02 07:32 | PC.NURSE ---
Pt found to be taking sheets off of bed and taking gown off, attempted to redress patient and put new linens on bed, pt continually pulling sheets off of bed. Able to place pt back in hospital attire, but pt unwilling to allow this nurse to put sheets on the bed at this time. Will attempt again.
[2020-02-02 08:00] VITALS: BP 120/75; PULSE 85; RESP 16; TEMP 36.8; O2SAT 95
[2020-02-02] MEDS: Sertraline HCL 25 MG TABLET PO (09:28)
[2020-02-02] MEDS: Omeprazole 20 MG CAPSULE.DR PO (09:28)
[2020-02-02] MEDS: Sennosides 8.6 MG TABLET PO (09:28)
[2020-02-02 09:29] VITALS: BP 120/75; PULSE 95
[2020-02-02] MEDS: Ascorbic Acid 500 MG TABLET PO (09:29)
[2020-02-02] MEDS: Atorvastatin Calcium 10 MG TABLET PO (09:29)
[2020-02-02] MEDS: lisinopriL 10 MG TABLET PO (09:29)
[2020-02-02] MEDS: Loratadine 10 MG TABLET PO (09:29)
[2020-02-02 09:30] VITALS: BP 120/75; PULSE 95
[2020-02-02] MEDS: Propranolol HCL LA 60 MG CAP.SA.24H PO (09:30)
[2020-02-02] MEDS: Fluticasone Propionate 100 MCG BLST.W.DEV 1 PUFF INHALE (09:31)
--- NOTE | 2020-02-02 11:41 | MHC.CARE ---
CARE Team spoke with DDS. Perez to be transported to residence at 4:30pm via ambulance.
[2020-02-02 12:00] VITALS: RESP 16
== END 2020-02-02 17:37 | disposition home or self-care (01) ==
PROVIDERS: Emergency Provider Emergency Medicine
DX: F43.20 Adjustment disorder, unspecified (principal); M25.511 Pain in right shoulder; I10 Essential (primary) hypertension; Z79.899 Other long term (current) drug therapy
CPT/HCPCS: 73030; 81003; 99282; 99285; J2930; Q0163

== ENCOUNTER 2020-02-13 11:34 | Outpatient (REF) | payer MEDICARE, MEDICAID, SELFPAY ==
--- NOTE | 2020-02-13 | MM_ITS ---
EXAMINATION: MM SCREENING DIGITAL MAMMOGRAPHY, BILATERAL CLINICAL INFORMATION: Screening. Asymptomatic. The lifetime risk of breast cancer based on the Tyrer-Cuzick Model is 10%. COMPARISON: Outside mammography, 2-D images: 10/14/2018, 01/12/2017, 11/20/2015 ([facility]). TECHNIQUE: Digital mammography is performed in craniocaudal and mediolateral oblique views along with computer-aided detection (CAD). Additional left cleavage view and right exaggerated CC view are provided. FINDINGS: There are scattered areas of fibroglandular density (ACR BI-RADS breast composition Category b). The left breast is unremarkable. There is no developing density or interval mass or architectural abnormality. There are some scattered punctate calcifications right breast without focal grouping or pleomorphic types. The skin contours are smooth. Right breast has nodularity posterior 2:00 position 12 cm from nipple approximately 5 x 7 mm. There is also a smaller nodule central upper outer right breast, 7 cm from the nipple. Neither finding is demonstrated with certainty on the prior outside 2-D images. MM/MM screening mammo BI IMPRESSION: 1. Right: Nodularity posterior to o'clock and mid upper outer quadrant. 2. Left: No mammographic evidence of malignancy. ASSESSMENT: BI-RADS 0: Incomplete - Need Additional Imaging Evaluation RECOMMENDATION: 1. Additional views of the right breast (Spot CC, Spot MLO). 2. Targeted ultrasound right breast. 3. Radiology department staff will contact the patient for additional imaging. This patient's information was entered into a reminder system with a target due date for their next mammogram.
== END 2020-02-13 11:35 | disposition home or self-care (01) ==
LOC: HO.MAMMO 11:34
PROVIDERS: Visit Provider Internal Medicine
DX: Z12.31 Encounter for screening mammogram for malignant neoplasm of breast (principal)
CPT/HCPCS: 77067

== ENCOUNTER 2020-02-26 13:07 | Outpatient (REF) | payer MEDICARE, MEDICAID, SELFPAY ==
--- NOTE | 2020-02-26 13:04 | CT_ITS ---
EXAMINATION: CT CHEST WITHOUT CONTRAST CLINICAL INFORMATION: Follow-up pulmonary nodules COMPARISON: Previous chest CT December 2018 TECHNIQUE: Multidetector volumetric CT imaging of the chest was done. Axial MIP volume rendering provided. Sagittal and coronal reformatted images were obtained. This CT examination was performed using dose optimization techniques as appropriate, variously including the following: *Automated exposure control *Adjustment of mA and/or kV according to patient size (this includes techniques or standardized protocols for targeted exams where dose is matched to indication/reason for exam; i.e. extremities or head) *Use of iterative reconstruction technique DLP: 242 mGy-cm FINDINGS: LIFTER/DRIVER: LUNGS: Exam is limited due to artifact from respiratory motion. There is left lower lobe atelectasis that is stable. The 2 mm right upper lobe nodule axial image 2:15 series 7 is stable. The 2 mm peripheral or subpleural right lower lobe nodule adjacent to the major fissure axial image 295 series 7 is stable. There is a 3 mm peripheral or subpleural left lower lobe nodule adjacent to the fissure axial image 273 series 3 that is stable. There is a 2 mm peripheral or subpleural left lower lobe nodule adjacent to the fissure axial image 307 series 7 that is not seen on previous exam. MEDIASTINUM: There are small mediastinal lymph nodes that are stable. There is mild to moderate coronary artery calcification. The heart is upper normal in size. There is no pericardial effusion. The ascending thoracic aorta is upper normal in size measuring 4 cm. The aortic arch and descending thoracic aorta are normal in caliber. PLEURA: There is no pleural effusion. No pleural mass or thickening. AXILLA: No chest wall mass or enlarged axillary lymph nodes are seen. UPPER ABDOMEN: Unremarkable. OSSEOUS STRUCTURES: There is a thoracolumbar scoliosis. CT/CT chest wo con IMPRESSION: Limited exam due to artifact from respiratory motion. Newly appreciated 2 mm peripheral or subpleural left lower lobe nodule adjacent to the fissure. Otherwise small pulmonary nodules are stable. Stable left lower lobe subsegmental atelectasis. Upper normal-size heart and ascending thoracic aorta and coronary artery calcification. Severe scoliosis.
== END 2020-02-26 13:08 | disposition home or self-care (01) ==
LOC: HO.CT 13:07
PROVIDERS: Visit Provider Internal Medicine Pulmonary Disease
DX: R91.8 Other nonspecific abnormal finding of lung field (principal)
CPT/HCPCS: 71250

== ENCOUNTER 2020-05-09 12:31 | Outpatient (REF) | payer MEDICARE, MEDICAID, SELFPAY ==
--- NOTE | ~2020-05-09 | US_ITS ---
EXAMINATION: US DIAGNOSTIC ULTRASOUND BREAST, RIGHT CLINICAL INFORMATION: Multiple density superior aspect right breast. COMPARISON: Mammography of same day as well as studies dating back to November 20, 2015. TECHNIQUE: Ultrasound of the breast is performed with real-time lara scale imaging and color Doppler. FINDINGS: Targeted ultrasound evaluation of the superior aspect of the right breast was then performed. At the 10:00 position approximately 8 cm from the nipple there are a few either anechoic or hypoechoic circumscribed structures with increased through sound transmission measuring 2 to 3 mm in size consistent with cysts. Scanning of the medial aspect superiorly did not demonstrate any cystic or solid mass or region of abnormal distal sound shadowing. Results are discussed with the patient at time of visit. US/US breast RT limited IMPRESSION: Multiple small cysts were noted about the lateral aspect of the right breast. No corresponding ultrasound abnormality is seen within the upper inner quadrant for the mammographic well-circumscribed benign-appearing lesion. Recommend 6 month follow-up right breast mammogram. ASSESSMENT: BI-RADS 3: Probably Benign RECOMMENDATION: Six-month follow-up right breast mammography to ensure stability of right breast lesions superiorly, especially upper inner quadrant lesion. This patient's information was entered into a reminder system with a target due date for their next mammogram.
--- NOTE | ~2020-05-09 | MM_ITS ---
EXAMINATION: MM DIAGNOSTIC DIGITAL BREAST TOMOSYNTHESIS, RIGHT CLINICAL INFORMATION: Multiple circumscribed right breast lesions superior aspect. COMPARISON: Mammography: 02/13/2020 and studies dating back to 11/20/2015. TECHNIQUE: Digital breast tomosynthesis is performed. 2D images are generated from the tomosynthesis. The following views are obtained: Spot compression craniocaudal and mediolateral oblique views. FINDINGS: There are scattered areas of fibroglandular density (ACR BI-RADS breast composition Category b). There is persistence of a grouping of 3 circumscribed densities one of which with mildly lobulated borders none of which with suspicious calcifications or spiculation. Maximum size is approximately 4 mm in diameter and these lie within the upper outer quadrant of the right breast. About the upper inner portion of the right breast there is a 5 x 5 mm well-circumscribed density containing a single benign-appearing calcification. Targeted ultrasound evaluation of the superior aspect of the right breast was then performed. At the 10 o'clock position approximately 8 cm from the nipple there are a few either anechoic or hypoechoic circumscribed structures with increased through sound transmission measuring 2-3 mm in size consistent with cysts. Scanning of the medial aspect superiorly did not demonstrate any cystic or solid mass or region of abnormal distal sound shadowing. Results are discussed with the patient at time of visit. MM/MM tomosynthesis added views R IMPRESSION: Multiple small cysts were noted about the lateral aspect of the right breast. No corresponding ultrasound abnormality is seen within the upper inner quadrant for the mammographic well-circumscribed benign-appearing lesion. Recommend six-month follow-up right breast mammogram. ASSESSMENT: BI-RADS 3: Probably Benign. RECOMMENDATION: Six-month follow-up right breast mammography to ensure stability of right breast lesions superiorly, especially upper inner quadrant lesion. This patient's information was entered into a reminder system with a target due date for their next mammogram.
== END 2020-05-09 12:32 | disposition home or self-care (01) ==
LOC: HO.MAMMO 12:31
PROVIDERS: Visit Provider Internal Medicine
DX: N63.12 Unspecified lump in the right breast, upper inner quadrant (principal)
CPT/HCPCS: 76642; 77061; 77065

== ENCOUNTER 2020-05-14 09:59 | Outpatient (REF) | payer MEDICARE, MEDICAID, SELFPAY ==
[2020-05-14 11:20] LABS: MANUAL DIFF FLAG NO
[2020-05-14 11:36] LABS: Basophils Percent Auto 0.2 % (0-2); Hematocrit 41.3 % (37-47); Hemoglobin 12.4 g/dl (12.0-16.0); Imm Gran Abs Auto 0.01 X10*3/uL (0.00-0.03); Imm Gran Pct Auto 0.2 % (0.0-0.4); Lymphocytes Absolute Auto 1.5 X10*3/uL (1.2-4.9); Mean Corpuscular Hemoglobin 25.6 pg (27.0-33.0); Mean Corpuscular Volume 85.2 fL (80-98); Mean Platelet Volume 9.2 fL (9.4-12.3); Monocytes Absolute Auto 0.3 X10*3/uL (0.1-1.2); Monocytes Percent Auto 6.4 % (2-11); Neutrophils Absolute Auto 3.5 X10*3/uL (2.0-8.3); Neutrophils Percent Auto 65.2 % (45-73); Platelet Count 209 X10*3/uL (160-400); Red Blood Count 4.85 X10*6/uL (4.20-5.50); White Blood Count 5.4 X10*3/uL (4.8-10.8)
[2020-05-14 12:00] LABS: Alanine Aminotransferase 16 U/L (0-31); Anion Gap 11 (12-20); Aspartate Amino Transferase 15 U/L (5-31); Blood Urea Nitrogen 15 mg/dL (9-16); Calcium 8.7 mg/dL (8.4-10.2); Carbon Dioxide 31 mmol/L (22-29); Chloride 104 mmol/L (96-108); Cholesterol 213 mg/dL; Estimated Glomerular Filt Rate > 60; Glucose Fasting 84 mg/dL (60-99); HDL Cholesterol 45 mg/dL; LDL Cholesterol Calculated 140 mg/dl; Sodium 142 mmol/L (135-145); Triglycerides 142 mg/dL
== END 2020-05-14 10:00 | disposition home or self-care (01) ==
LOC: HO.HMGCLDS 09:59
PROVIDERS: PCP Internal Medicine; Visit Provider Internal Medicine
DX: Z13.89 Encounter for screening for other disorder (principal)
CPT/HCPCS: 36415; 80048; 80061; 84450; 84460; 85025

== ENCOUNTER 2020-05-14 11:28 | Outpatient (REF) | payer MEDICARE, MEDICAID, SELFPAY | END 2020-05-14 11:29 | disposition home or self-care (01) | LOC: HO.LAB 11:28 | PROVIDERS: Visit Provider Nurse Practitioner Family | DX: N39.0 Urinary tract infection, site not specified (principal); E78.5 Hyperlipidemia, unspecified; I10 Essential (primary) hypertension; I69.359 Hemiplegia and hemiparesis following cerebral infarction affecting unspecified side | CPT/HCPCS: 36415; 80048; 80061; 84450; 84460; 85025; 87086; 87088; 87186 ==

== ENCOUNTER 2020-08-07 10:35 | Outpatient (REF) | payer MEDICARE, MEDICAID, SELFPAY ==
[2020-08-07 14:23] LABS: Glucose Urine UA NEG (NEG); Leukocyte Esterase Urine NEG (NEG); Nitrite Urine NEG (NEG); Specific Gravity - Urine 1.025 (1.005-1.025); Urine Blood NEG (NEG); Urine Ketones NEG (NEG); Urine Protein NEG (NEG-TRACE)
[2020-08-07 14:25] LABS: Alanine Aminotransferase 11 U/L (0-31); Aspartate Amino Transferase 11 U/L (5-31); Cholesterol 170 mg/dL; HDL Cholesterol 35 mg/dL; LDL Cholesterol Calculated 111 mg/dl; Triglycerides 122 mg/dL
[2020-08-07 14:35] LABS: Appearance Urine CLEAR; Color Urine YELLOW
[2020-08-07 14:50] LABS: Vitamin D 25-OH Total 61.2 ng/mL (>30)
== END 2020-08-07 10:36 | disposition home or self-care (01) ==
LOC: HO.HMGCLDS 10:35
PROVIDERS: PCP Internal Medicine; Visit Provider Internal Medicine
DX: G40.309 Generalized idiopathic epilepsy and epileptic syndromes, not intractable, without status epilepticus (principal); E78.5 Hyperlipidemia, unspecified; R35.0 Frequency of micturition; Z78.0 Asymptomatic menopausal state
CPT/HCPCS: 36415; 80061; 81003; 82306; 84450; 84460

== ENCOUNTER 2020-08-14 10:29 | Outpatient (REF) | payer MEDICARE, MEDICAID, SELFPAY ==
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
== END 2020-08-14 10:30 | disposition home or self-care (01) ==
LOC: HO.MAMMO 10:29
PROVIDERS: Visit Provider Internal Medicine
DX: Z13.820 Encounter for screening for osteoporosis (principal); Z78.0 Asymptomatic menopausal state
CPT/HCPCS: 77080

== ENCOUNTER 2020-11-06 14:00 | Outpatient (REF) | payer MEDICARE, MEDICAID, SELFPAY ==
--- NOTE | ~2020-11-06 | MM_ITS ---
EXAMINATION: MM DIAGNOSTIC DIGITAL BREAST TOMOSYNTHESIS, RIGHT CLINICAL INFORMATION: Short interval six-month follow-up probable benign smooth nodularity right breast upper inner and mid outer. Targeted ultrasound suggests probable cysts. The lifetime risk of breast cancer based on the Tyrer-Cuzick Model is 9%. COMPARISON: Mammography: 05/09/2020, 02/13/2020 (BI-RADS 0); ultrasound right breast 05/09/2020; outside mammography: 10/14/2018, 01/12/2017, 11/20/2015 ([facility]). TECHNIQUE: Digital breast tomosynthesis is performed in both the craniocaudal and mediolateral oblique views along with computer-aided detection (CAD). Synthesized 2D images are generated from the tomosynthesis. FINDINGS: There are scattered areas of fibroglandular density (ACR BI-RADS breast composition Category b). The small nodule posterior 2:00 position is slightly decreased in size. Margins are smooth. The small nodule mid upper outer quadrant is stable. Margins are smooth. There is no developing density. Remainder of the breast is unremarkable. No architectural abnormality or abnormal calcifications. Results are provided to the patient at time of visit by the technologist. MM/MM tomosynthesis diagnostic RT IMPRESSION: Benign-appearing nodularity right breast stable to decreased. ASSESSMENT: BI-RADS 3: Probably Benign RECOMMENDATION: Diagnostic mammography at time of annual bilateral exam, due within 6 months. This patient's information was entered into a reminder system with a target due date for their next mammogram.
== END 2020-11-06 14:01 | disposition home or self-care (01) ==
LOC: HO.MAMMO 14:00
PROVIDERS: Visit Provider Internal Medicine
DX: N63.15 Unspecified lump in the right breast, overlapping quadrants (principal)
CPT/HCPCS: 77061; 77065

== ENCOUNTER 2020-12-03 09:51 | Outpatient (REF) | payer MEDICARE, MEDICAID, SELFPAY ==
[2020-12-09 00:51] LABS: Lamotrigine Lamictal 14.2 mcg/mL (4.0-18.0)
== END 2020-12-03 09:52 | disposition home or self-care (01) ==
LOC: HO.HMGCLDS 09:51
PROVIDERS: PCP Internal Medicine; Visit Provider Psychiatry & Neurology Neurology
DX: G40.509 Epileptic seizures related to external causes, not intractable, without status epilepticus (principal); Z79.899 Other long term (current) drug therapy
CPT/HCPCS: 36415; 80175

== ENCOUNTER 2021-01-28 11:24 | Outpatient (REF) | payer MEDICARE, MEDICAID, SELFPAY ==
[2021-01-28 14:01] LABS: Appearance Urine CLEAR; Color Urine STRAW; Glucose Urine UA NEG (NEG); Leukocyte Esterase Urine 1+ (NEG); Nitrite Urine POS (NEG); Specific Gravity - Urine <= 1.005 (1.005-1.025); UACC Culture Trigger YES; Urine Blood NEG (NEG); Urine Ketones NEG (NEG); Urine Protein NEG (NEG-TRACE)
[2021-01-28 14:13] LABS: Bacteria Urine 1+ /LPF
[2021-01-28 14:14] LABS: RBC Urine 0 /HPF (0); Squamous Epithelial Cell Urine TRACE /LPF
== END 2021-01-28 11:25 | disposition home or self-care (01) ==
LOC: HO.HMGCLNP 11:24
PROVIDERS: Visit Provider Internal Medicine
DX: R30.0 Dysuria (principal)
CPT/HCPCS: 81001; 81003; 87086; 87088; 87186

== ENCOUNTER 2021-02-08 07:29 | Outpatient (REF) | payer MEDICARE, MEDICAID, SELFPAY ==
[2021-02-08 11:56] LABS: Alanine Aminotransferase 15 U/L (0-31); Anion Gap 13 (12-20); Aspartate Amino Transferase 13 U/L (5-31); Blood Urea Nitrogen 10 mg/dL (9-16); Calcium 8.7 mg/dL (8.4-10.2); Carbon Dioxide 27 mmol/L (22-29); Chloride 105 mmol/L (96-108); Cholesterol 172 mg/dL; Estimated Glomerular Filt Rate > 60; Glucose Fasting 95 mg/dL (60-99); HDL Cholesterol 35 mg/dL; LDL Cholesterol Calculated 105 mg/dl; Potassium 4.1 mmol/L (3.3-5.1); Sodium 141 mmol/L (135-145); Triglycerides 164 mg/dL
[2021-02-08 12:04] LABS: Vitamin D 25-OH Total 60.8 ng/mL (>30)
== END 2021-02-08 07:30 | disposition home or self-care (01) ==
LOC: HO.HMGCLDS 07:29
PROVIDERS: PCP Internal Medicine; Visit Provider Internal Medicine
DX: E78.5 Hyperlipidemia, unspecified (principal)
CPT/HCPCS: 36415; 80048; 80061; 82306; 84450; 84460

== ENCOUNTER → 2021-04-14 14:48 | Outpatient (BNVA) | payer MEDICARE, MEDICAID, SELFPAY | PROVIDERS: PCP Internal Medicine; Visit Provider Advanced Practice Midwife ==

== ENCOUNTER 2021-05-30 13:26 | Outpatient (REF) | payer MEDICARE, MEDICAID, SELFPAY ==
--- NOTE | ~2021-05-30 | MM_ITS ---
EXAMINATION: MM DIAGNOSTIC DIGITAL BREAST TOMOSYNTHESIS, BILATERAL CLINICAL INFORMATION: Due for yearly. Also follow-up probable benign nodularity right breast upper quadrant and posterior inner quadrant. TC score 10%. COMPARISON: Mammography: 11/06/2020, 05/09/2020, 02/13/2020 (BI-RADS 0), outside mammography 10/14/2018 ([facility]). TECHNIQUE: Digital breast tomosynthesis is performed in both the craniocaudal and mediolateral oblique views along with computer-aided detection (CAD). Synthesized 2D images are generated from the tomosynthesis. Technologist notes technically challenging exam, patient in wheelchair. Images optimized to patient capabilities. FINDINGS: There are scattered areas of fibroglandular density (ACR BI-RADS breast composition Category b). There are no significant masses, abnormal calcifications, or other abnormalities. There is no developing density or architectural abnormality. Small nodule for follow-up posterior central 3:00 right breast is stable to decreased. Small circumscribed nodule for follow-up mid central 11:30 o'clock is stable to decreased. Nodularity will be reassessed again at next bilateral annual mammography to conclude long-term surveillance. Results are provided to the patient at time of visit by the technologist. MM/MM tomosynthesis diagnostic BI IMPRESSION: -Right: Small nodularity stable to borderline decreased from prior studies. -Left: No mammographic evidence of malignancy. ASSESSMENT: BI-RADS 3: Probably Benign RECOMMENDATION: Diagnostic mammography at time of next annual exam, due in 12 months. This patient's information was entered into a reminder system with a target due date for their next mammogram.
== END 2021-05-30 13:27 | disposition home or self-care (01) ==
LOC: HO.MAMMO 13:26
PROVIDERS: Visit Provider Internal Medicine
DX: N63.15 Unspecified lump in the right breast, overlapping quadrants (principal)
CPT/HCPCS: 77062; 77066

== ENCOUNTER 2021-06-23 13:08 | Emergency (ER) | payer MEDICARE, MEDICAID, SELFPAY ==
--- NOTE | ~2021-06-23 | CT_ITS ---
EXAMINATION: CT HEAD WITHOUT CONTRAST CT CERVICAL SPINE WITHOUT CONTRAST CLINICAL INFORMATION: Fall. COMPARISON: None. TECHNIQUE: Imaging was performed from the skull base to vertex without intravenous administration of contrast. In addition, helical noncontrast CT imaging was acquired through the cervical spine and source images were reviewed along with axial reconstructions and sagittal and coronal MPRs. [This CT examination was performed using dose optimization techniques as appropriate, variously including the following: *Automated exposure control *Adjustment of mA and/or kV according to patient size (this includes techniques or standardized protocols for targeted exams where dose is matched to indication/reason for exam; i.e. extremities or head) *Use of iterative reconstruction technique] DLP: 1363 mGy-cm FINDINGS: HEAD: Large geographic area of encephalomalacia involving the left temporal, occipital and portions of the frontal parietal lobe. Status post left sided craniotomy. There is compensatory dilatation of the left lateral ventricle. No acute osseous abnormality. No evidence of an acute infarct. No intracranial hemorrhage. There is no midline shift. No extra-axial collection. Scattered sinus mucosal disease in the ethmoid sinuses. Surgical window is at the medial wall the maxillary sinuses. There is a large retention cyst in the left sphenoid sinus. Incidental note made of 2 ossified skin lesions at the posterior vertex. CERVICAL SPINE: There is no evidence of acute cervical spine fracture. Vertebral bodies remain normal in height. Cervical vertebrae have normal alignment. There is multilevel degenerative spondylosis of the cervical spine with disc height narrowing and endplate spurs and facet joint arthrosis No pre- or paravertebral soft tissue abnormality is identified. Limited assessment of the lung apices is unremarkable. CT/CT cervical spine wo con IMPRESSION: 1. No acute intracranial pathology. 2. No CT evidence of acute cervical spine fracture or traumatic subluxation
[2021-06-23 14:15] VITALS: BP 99/55; PULSE 69; RESP 18; TEMP 36.9; O2SAT 94; BMI 34.5
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
--- NOTE | 2021-06-23 15:33 | PC.NURSE ---
PT ASSISTED ONTO STRETCHER WITH 2 assist, pt able to pivot. leg brace noted to right lower leg. pt able to make needs known, staff from [facility] here at bedside.
== END 2021-06-23 15:35 | disposition home or self-care (01) ==
PROVIDERS: Emergency Provider Emergency Medicine; PCP Internal Medicine
DX: Z71.1 Person with feared health complaint in whom no diagnosis is made (principal); Z91.81 History of falling; R53.1 Weakness; E78.5 Hyperlipidemia, unspecified; Z86.73 Personal history of transient ischemic attack (TIA), and cerebral infarction without residual deficits
CPT/HCPCS: 70450; 72125; 99283; 99284

== ENCOUNTER 2021-07-24 08:44 | Outpatient (REF) | payer MEDICARE, MEDICAID, SELFPAY ==
[2021-07-24 12:09] LABS: Alanine Aminotransferase 15 U/L (0-31); Anion Gap 12 (12-20); Aspartate Amino Transferase 17 U/L (5-31); Blood Urea Nitrogen 13 mg/dL (9-16); Calcium 9.2 mg/dL (8.4-10.2); Carbon Dioxide 27 mmol/L (22-29); Chloride 105 mmol/L (96-108); Cholesterol 184 mg/dL; Estimated Glomerular Filt Rate > 60; Glucose Fasting 97 mg/dL (60-99); HDL Cholesterol 36 mg/dL; LDL Cholesterol Calculated 114 mg/dl; Potassium 4.3 mmol/L (3.3-5.1); Sodium 140 mmol/L (135-145); Triglycerides 170 mg/dL
== END 2021-07-24 08:45 | disposition home or self-care (01) ==
LOC: HO.HMGCLDS 08:44
PROVIDERS: PCP Internal Medicine; Visit Provider Internal Medicine
DX: M85.852 Other specified disorders of bone density and structure, left thigh (principal); I10 Essential (primary) hypertension; E78.5 Hyperlipidemia, unspecified
CPT/HCPCS: 36415; 80048; 80061; 82306; 84450; 84460

== ENCOUNTER 2021-11-04 08:13 | Outpatient (REF) | payer MEDICARE, MEDICAID, SELFPAY | END 2021-11-04 08:14 | disposition home or self-care (01) | LOC: HO.HMGCLDS 08:13 | PROVIDERS: PCP Internal Medicine; Visit Provider Internal Medicine | DX: Z13.89 Encounter for screening for other disorder (principal) ==

== ENCOUNTER 2022-02-10 09:36 | Outpatient (REF) | payer MEDICARE, MEDICAID, SELFPAY ==
[2022-02-10 12:03] LABS: Appearance Urine Cloudy; Color Urine Yellow; Glucose Urine UA Negative (Negative); Leukocyte Esterase Urine Negative (Negative); Nitrite Urine Negative (Negative); PH 7.5 (5.0-9.0); Specific Gravity - Urine 1.015 (1.005-1.025); Urine Blood Negative (Negative); Urine Ketones Negative (Negative); Urine Protein Negative (Neg-Trace)
== END 2022-02-10 09:37 | disposition home or self-care (01) ==
LOC: HO.HMGCLDS 09:36
PROVIDERS: PCP Internal Medicine; Visit Provider Internal Medicine
DX: R30.0 Dysuria (principal)
CPT/HCPCS: 81003

== ENCOUNTER 2022-04-22 10:00 | Outpatient (REF) | payer MEDICARE, MEDICAID, SELFPAY ==
[2022-04-22 16:04] LABS: CT PCR NOT DETECTED (Not Detect.); NG PCR NOT DETECTED (Not Detect.)
[2022-04-24 17:58] LABS: HPV mRNA E6/E7 rflx Not Detected (Not Detected)
== END 2022-04-22 10:01 | disposition home or self-care (01) ==
LOC: HO.LNP 10:00
PROVIDERS: PCP Internal Medicine; Visit Provider Advanced Practice Midwife
DX: Z01.419 Encounter for gynecological examination (general) (routine) without abnormal findings (principal); Z11.51 Encounter for screening for human papillomavirus (HPV)
CPT/HCPCS: 0353U; 87624; 88142

== ENCOUNTER 2022-04-27 08:40 | Outpatient (REF) | payer MEDICARE, MEDICAID, SELFPAY ==
[2022-04-27 11:58] LABS: MANUAL DIFF FLAG NO
[2022-04-27 12:18] LABS: Hematocrit 42.5 % (37.0-47.0); Hemoglobin 13.3 g/dl (12.0-16.0); Imm Gran Abs Auto 0.01 X10*3/uL (0.00-0.03); Imm Gran Pct Auto 0.2 % (0.0-0.4); Lymphocytes Absolute Auto 1.5 X10*3/uL (1.2-4.9); Lymphocytes Percent Auto 29.7 % (20-40); Mean Corpuscular HGB Conc 31.3 g/dl (31.0-35.0); Mean Corpuscular Hemoglobin 27.3 pg (27.0-33.0); Mean Corpuscular Volume 87.1 fL (80.0-98.0); Mean Platelet Volume 9.7 fL (9.4-12.3); Monocytes Absolute Auto 0.3 X10*3/uL (0.1-1.2); Monocytes Percent Auto 5.7 % (2-11); Neutrophils Absolute Auto 3.3 x10*3/uL (2.0-8.3); Neutrophils Percent Auto 64.4 % (45-73); Platelet Count 205 X10*3/uL (160-400); Red Blood Count 4.88 X10*6/uL (4.20-5.50); Red Cell Distribution Width 13.2 % (11.0-16.0); White Blood Count 5.1 X10*3/uL (4.8-10.8)
[2022-04-27 12:40] LABS: Alanine Aminotransferase 17 U/L (0-31); Anion Gap 14 (12-20); Aspartate Amino Transferase 16 U/L (5-31); Blood Urea Nitrogen 17 mg/dL (9-16); Calcium 9.1 mg/dL (8.4-10.2); Carbon Dioxide 26 mmol/L (22-29); Chloride 106 mmol/L (96-108); Cholesterol 207 mg/dL; Estimated Glomerular Filt Rate > 60; Glucose Fasting 97 mg/dL (60-99); HDL Cholesterol 36 mg/dL; LDL Cholesterol Calculated 132 mg/dl; Potassium 4.4 mmol/L (3.3-5.1); Sodium 142 mmol/L (135-145); Triglycerides 198 mg/dL
[2022-04-27 12:46] LABS: Vitamin D 25-OH Total 38.9 ng/mL (>30)
== END 2022-04-27 08:41 | disposition home or self-care (01) ==
LOC: HO.HMGCLDS 08:40
PROVIDERS: Visit Provider Internal Medicine
DX: M85.852 Other specified disorders of bone density and structure, left thigh (principal); I10 Essential (primary) hypertension; E78.5 Hyperlipidemia, unspecified; N95.1 Menopausal and female climacteric states; I69.359 Hemiplegia and hemiparesis following cerebral infarction affecting unspecified side
CPT/HCPCS: 36415; 80048; 80061; 82306; 84450; 84460; 85025

== ENCOUNTER 2022-05-15 15:09 | Emergency (ER) | payer MEDICARE, MEDICAID, SELFPAY ==
[2022-05-15 15:34] VITALS: BP 110/63; PULSE 73; RESP 18; TEMP 36.7; O2SAT 95; BMI 47.5
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
[2022-05-15] MEDS: diphenhydrAMINE HCL 25 MG CAPSULE 50 MG PO (17:18)
[2022-05-15] MEDS: methylPREDNISolone Sod Succ 125 MG/2 ML VIAL 60 MG IM (17:18)
[2022-05-15] MEDS: Famotidine 20 MG TABLET PO (17:18)
== END 2022-05-15 18:28 | disposition home or self-care (01) ==
PROVIDERS: Emergency Provider Emergency Medicine; PCP Internal Medicine
DX: L50.9 Urticaria, unspecified (principal); I10 Essential (primary) hypertension; E78.5 Hyperlipidemia, unspecified; Z79.899 Other long term (current) drug therapy; Z79.02 Long term (current) use of antithrombotics/antiplatelets
CPT/HCPCS: 96372; 99282; 99284; J2930

== ENCOUNTER 2022-06-02 12:44 | Outpatient (REF) | payer MEDICARE, MEDICAID, SELFPAY ==
--- NOTE | ~2022-06-02 | MM_ITS ---
EXAMINATION: MM DIAGNOSTIC DIGITAL BREAST TOMOSYNTHESIS, BILATERAL CLINICAL INFORMATION: Due for yearly. Also follow-up probable benign nodularity right breast posterior central inner and mid upper outer. TC score 9%. COMPARISON: Mammography: 05/30/2021, 11/06/2020, 05/09/2020, 02/13/2020 (BI-RADS 0), outside mammography 10/14/2018 ([facility]), right breast ultrasound 05/09/2020. TECHNIQUE: Digital breast tomosynthesis is performed in both the craniocaudal and mediolateral oblique views along with computer-aided detection (CAD). Synthesized 2D images are generated from the tomosynthesis. Patient in wheelchair, 2 technologists for optimizing positioning, tailored to patient capabilities. FINDINGS: There are scattered areas of fibroglandular density (ACR BI-RADS breast composition Category b). There are no significant changes from prior exams. The 2 small nodules right breast for follow-up are slightly decreased over time, now considered to be benign. There is no developing density or interval architectural abnormality. The remainder the bilateral breasts show no significant changes. There are no abnormal calcifications. The skin contours are smooth. Results are provided to the patient at time of visit by the technologist. MM/MM tomosynthesis diagnostic BI IMPRESSION: No mammographic evidence of malignancy. ASSESSMENT: BI-RADS 2: Benign RECOMMENDATION: Routine annual mammography screening. This patient's information was entered into a reminder system with a target due date for their next mammogram.
== END 2022-06-02 12:45 | disposition home or self-care (01) ==
LOC: HO.MAMMO 12:44
PROVIDERS: PCP Internal Medicine; Visit Provider Internal Medicine
DX: N63.11 Unspecified lump in the right breast, upper outer quadrant (principal); R92.2 Inconclusive mammogram
CPT/HCPCS: 77062; 77066

== ENCOUNTER 2022-06-16 08:05 | Outpatient (REF) | payer MEDICARE, MEDICAID, SELFPAY ==
[2022-06-16 12:14] LABS: Alanine Aminotransferase 11 U/L (0-31); Aspartate Amino Transferase 13 U/L (5-31); Cholesterol 186 mg/dL; HDL Cholesterol 35 mg/dL; LDL Cholesterol Calculated 120 mg/dl; Triglycerides 158 mg/dL
[2022-06-16 12:41] LABS: Vitamin D 25-OH Total 40.3 ng/mL (>30)
== END 2022-06-16 08:06 | disposition home or self-care (01) ==
LOC: HO.HMGCLDS 08:05
PROVIDERS: PCP Internal Medicine; Visit Provider Internal Medicine
DX: I10 Essential (primary) hypertension (principal); N95.1 Menopausal and female climacteric states; I69.359 Hemiplegia and hemiparesis following cerebral infarction affecting unspecified side; M85.852 Other specified disorders of bone density and structure, left thigh; E78.5 Hyperlipidemia, unspecified
CPT/HCPCS: 36415; 80061; 82306; 84450; 84460

== ENCOUNTER 2022-11-02 08:38 | Outpatient (REF) | payer MEDICARE, MEDICAID, SELFPAY ==
[2022-11-02 12:28] LABS: Alanine Aminotransferase 10 U/L (0-31); Aspartate Amino Transferase 12 U/L (5-31); Cholesterol 170 mg/dL; HDL Cholesterol 35 mg/dL; LDL Cholesterol Calculated 106 mg/dl; Triglycerides 147 mg/dL
[2022-11-04 23:58] LABS: Lamotrigine Lamictal 19.4 mcg/mL (2.5-15.0)
== END 2022-11-02 08:39 | disposition home or self-care (01) ==
LOC: HO.HMGCLDS 08:38
PROVIDERS: Internal Medicine; PCP Internal Medicine; Visit Provider Internal Medicine
DX: E78.5 Hyperlipidemia, unspecified (principal); Z79.899 Other long term (current) drug therapy
CPT/HCPCS: 36415; 80061; 80175; 84450; 84460

== ENCOUNTER 2022-11-16 10:24 | Outpatient (AMB) | payer MEDICARE, MEDICAID, SELFPAY ==
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
[2022-11-16 10:36] VITALS: BP 109/57; PULSE 80
== END 2022-11-16 12:09 | disposition home or self-care (01) ==
PROVIDERS: PCP Internal Medicine; Visit Provider Physician Assistant
DX: R19.5 Other fecal abnormalities (principal)
CPT/HCPCS: 99203

== ENCOUNTER → 2022-11-16 10:24 | Outpatient (BNVA) | payer MEDICARE, MEDICAID, SELFPAY | PROVIDERS: PCP Internal Medicine; Visit Provider Physician Assistant | DX: R19.5 Other fecal abnormalities (principal); Z86.73 Personal history of transient ischemic attack (TIA), and cerebral infarction without residual deficits; Z99.3 Dependence on wheelchair | CPT/HCPCS: 99202 ==

== ENCOUNTER 2022-11-17 08:18 | Outpatient (AMB) | payer MEDICARE, MEDICAID, SELFPAY ==
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
[2022-11-17 08:25] VITALS: BP 110/68; PULSE 80; O2SAT 97
== END 2022-11-17 09:23 | disposition home or self-care (01) ==
PROVIDERS: PCP Internal Medicine; Visit Provider Internal Medicine
DX: Z00.00 Encounter for general adult medical examination without abnormal findings (principal); I69.359 Hemiplegia and hemiparesis following cerebral infarction affecting unspecified side; F43.20 Adjustment disorder, unspecified; J45.20 Mild intermittent asthma, uncomplicated; I10 Essential (primary) hypertension; G40.309 Generalized idiopathic epilepsy and epileptic syndromes, not intractable, without status epilepticus; M85.852 Other specified disorders of bone density and structure, left thigh; E78.5 Hyperlipidemia, unspecified; L50.1 Idiopathic urticaria; R19.5 Other fecal abnormalities
CPT/HCPCS: 1123F; G0439

== ENCOUNTER 2022-12-04 09:16 | Emergency (ER) | payer MEDICARE, MEDICAID, SELFPAY ==
--- NOTE | ~2022-12-04 | CT_ITS ---
EXAMINATION: CT HEAD W/O IV CONTRAST CT FACIAL BONES WITHOUT IV CONTRAST CLINICAL INFORMATION: History of fall with right-sided facial trauma. COMPARISON: CT head and cervical spine from 06/23/2021 TECHNIQUE: Head - Contiguous axial imaging of the head was performed from the skull base to the vertex without the administration of intravenous contrast. Facial bones- A volumetric, helical CT acquisition of the facial bones was obtained without contrast; in addition to the standard set of axial images, multiplanar reformatted images were provided in the coronal and sagittal imaging planes. This CT examination was performed using dose optimization techniques as appropriate, variously including the following: *Automated exposure control *Adjustment of mA and/or kV according to patient size (this includes techniques or standardized protocols for targeted exams where dose is matched to indication/reason for exam; i.e. extremities or head) *Use of iterative reconstruction technique DLP: 1070 mGy-cm (total) FINDINGS: HEAD: A small hyperdensity overlying the right frontal lobe of 0.3 cm thickness is consistent with acute subdural hematoma (images 32-34 of series 3). There is atherosclerotic calcification of cavernous carotid arteries. Chronic patchy hypoattenuation is present in supratentorial white matter. Again noted is the large left-sided craniotomy and areas of chronic encephalomalacia of left temporal, occipital and portions of parietal and occipital lobes. There is chronic ex vacuo dilatation of the left ventricle. No evidence of mass or focal mass effect. The brainstem and cerebellum are unremarkable. No calvarial fracture. 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 FACIAL BONES: The globes and orbital galeano, including lamina papyracea, are intact. The orbital apex, optic canals, and retrobulbar fat planes are normal. The maxilla, mandible and temporomandibular joints are intact. Nasal bones, pterygoid plates and zygomatic arches are normal. Chronic paranasal sinus disease. There are foci of mucus within inferior right frontal, sphenoid and maxillary sinuses. There appears to be polypoid mucosal thickening of the nasal cavity. Mucosal thickening of bilateral ethmoid air cells is present. An osteoma of the inferior left frontal sinus measures up to 0.9 cm. No air-fluid levels within the paranasal sinuses. Probable remote bilateral maxillary antrostomies. The degenerated cervical spine is partially included in [id number]. CT/CT facial bones wo IV con IMPRESSION: * There appears to be a small acute right-sided subdural hematoma. Otherwise, no new intracranial findings compared to prior head CT from 06/23/2021. * No calvarial fracture. No evidence of acute maxillofacial bone injury. * Chronic paranasal sinus disease. The critical test result was discussed with CARMEN Wilhelm, at 2:06 PM on 12/04/2022 and it was ascertained that the content and the importance of the findings was understood at the time of the direct communication.
--- NOTE | ~2022-12-04 | XR_ITS ---
EXAMINATION: XR KNEE, LEFT CLINICAL INFORMATION: Pain after fall COMPARISON: None available. TECHNIQUE: Four views of the left knee. FINDINGS: Alignment is normal. Joint spaces are maintained. No fracture, subluxation or joint effusion. Small osteophytes are present at patellofemoral and tibiofemoral compartments. XR/XR knee LT 4V IMPRESSION: * No acute osseous injury at the left knee. * Mild tricompartmental osteoarthritis.
[2022-12-04 09:41] VITALS: BP 128/71; PULSE 74; RESP 18; TEMP 36.4; O2SAT 96; BMI 37.8
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
[2022-12-04] MEDS: Acetaminophen 325 MG TABLET 975 MG PO (12:21)
--- NOTE | 2022-12-04 14:22 | MHC.EDTECH ---
Called [facility] @ 14:22 possible trauma transfer. Spoke to Helen.
[2022-12-04 15:20] VITALS: BP 140/68; PULSE 76; RESP 18; O2SAT 97
--- NOTE | 2022-12-04 15:21 | PC.NURSE ---
alert, nad, r facial bruise and swelling, c/o soreness to r facial area, denies dizziness or nausea, pt at baseline per staff, pt smiling and pleasant w nad
== END 2022-12-04 15:38 | disposition other institution (70) ==
PROVIDERS: Emergency Provider Emergency Medicine; PCP Internal Medicine
DX: S06.5X0A Traumatic subdural hemorrhage without loss of consciousness, initial encounter (principal); S00.83XA Contusion of other part of head, initial encounter; W06.XXXA Fall from bed, initial encounter; I69.951 Hemiplegia and hemiparesis following unspecified cerebrovascular disease affecting right dominant side; I10 Essential (primary) hypertension; E78.5 Hyperlipidemia, unspecified; E66.9 Obesity, unspecified; Z68.37 Body mass index [BMI] 37.0-37.9, adult; Y93.89 Activity, other specified; Y92.042 Bedroom in boarding-house as the place of occurrence of the external cause; Y99.9 Unspecified external cause status; Z99.3 Dependence on wheelchair; Z79.899 Other long term (current) drug therapy
CPT/HCPCS: 70450; 70486; 73564; 99283; 99284

== ENCOUNTER 2022-12-15 09:08 | Outpatient (AMB) | payer MEDICARE, MEDICAID, SELFPAY ==
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
[2022-12-15 09:42] VITALS: BP 102/70; PULSE 90; O2SAT 96
== END 2022-12-15 10:33 | disposition home or self-care (01) ==
PROVIDERS: PCP Internal Medicine; Visit Provider Internal Medicine
DX: Z91.81 History of falling (principal)
CPT/HCPCS: 99213

== ENCOUNTER 2023-03-17 10:30 | Outpatient (AMB) | payer MEDICARE, MEDICAID, SELFPAY ==
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
[2023-03-17 10:56] VITALS: BP 130/88; PULSE 86; O2SAT 95; BMI 36.6
== END 2023-03-17 16:08 | disposition home or self-care (01) ==
PROVIDERS: PCP Internal Medicine; Visit Provider Internal Medicine
DX: G40.309 Generalized idiopathic epilepsy and epileptic syndromes, not intractable, without status epilepticus (principal); I69.351 Hemiplegia and hemiparesis following cerebral infarction affecting right dominant side; E66.9 Obesity, unspecified; Z68.36 Body mass index [BMI] 36.0-36.9, adult; I10 Essential (primary) hypertension; E78.5 Hyperlipidemia, unspecified; J45.20 Mild intermittent asthma, uncomplicated; Z74.09 Other reduced mobility; F43.20 Adjustment disorder, unspecified; R19.5 Other fecal abnormalities
CPT/HCPCS: 99214

== ENCOUNTER 2023-04-01 09:26 | Outpatient (REF) | payer MEDICARE, MEDICAID, SELFPAY ==
[2023-04-01 11:47] LABS: Alanine Aminotransferase 12 U/L (0-31); Anion Gap 10 (12-20); Aspartate Amino Transferase 15 U/L (5-31); Blood Urea Nitrogen 13 mg/dL (9-16); Calcium 9.3 mg/dL (8.4-10.2); Carbon Dioxide 32 mmol/L (22-29); Chloride 103 mmol/L (96-108); Cholesterol 200 mg/dL (<200); Estimated Glomerular Filt Rate > 60; Glucose Fasting 76 mg/dL (60-99); HDL Cholesterol 39 mg/dL (>40); LDL Cholesterol Calculated 119 mg/dL (<100); Potassium 4.1 mmol/L (3.3-5.1); Sodium 141 mmol/L (135-145); Triglycerides 214 mg/dL (<150)
[2023-04-01 12:04] LABS: Vitamin D 25-OH Total 41.8 ng/mL (>30)
[2023-04-07 12:58] LABS: Lamotrigine Lamictal 12.7 mcg/mL (2.5-15.0)
== END 2023-04-01 09:27 | disposition home or self-care (01) ==
LOC: HO.HMGCLDS 09:26
PROVIDERS: Internal Medicine; PCP Internal Medicine; Visit Provider Internal Medicine
DX: E66.9 Obesity, unspecified (principal); I10 Essential (primary) hypertension; E78.5 Hyperlipidemia, unspecified; F43.20 Adjustment disorder, unspecified; J45.20 Mild intermittent asthma, uncomplicated; G40.309 Generalized idiopathic epilepsy and epileptic syndromes, not intractable, without status epilepticus; M85.852 Other specified disorders of bone density and structure, left thigh; I69.351 Hemiplegia and hemiparesis following cerebral infarction affecting right dominant side; R19.5 Other fecal abnormalities; Z74.09 Other reduced mobility
CPT/HCPCS: 36415; 80048; 80061; 80175; 82306; 82607; 82746; 84450; 84460; 85025

== ENCOUNTER 2023-04-08 10:25 | Outpatient (REF) | payer MEDICARE, MEDICAID, SELFPAY ==
[2023-04-08 16:22] LABS: Appearance Urine Clear; Color Urine Yellow; Glucose Urine UA Negative (Negative); Leukocyte Esterase Urine Negative (Negative); Nitrite Urine Negative (Negative); PH 7.5 (5.0-9.0); Urine Blood Negative (Negative); Urine Ketones Negative (Negative); Urine Protein Negative (Neg-Trace)
== END 2023-04-08 10:26 | disposition home or self-care (01) ==
LOC: HO.HMGCLNP 10:25
PROVIDERS: Visit Provider Internal Medicine
DX: R30.0 Dysuria (principal)
CPT/HCPCS: 81003

== ENCOUNTER 2023-05-05 13:16 | Outpatient (AMB) | payer MEDICARE, MEDICAID, SELFPAY ==
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
[2023-05-05 13:20] VITALS: BP 96/60; BMI 36.6
== END 2023-05-05 14:10 | disposition home or self-care (01) ==
PROVIDERS: Visit Provider Advanced Practice Midwife
DX: Z01.419 Encounter for gynecological examination (general) (routine) without abnormal findings (principal)
CPT/HCPCS: G0101

== ENCOUNTER → 2023-05-05 13:16 | Outpatient (BNVA) | payer MEDICARE, MEDICAID, SELFPAY | PROVIDERS: Visit Provider Advanced Practice Midwife | DX: Z01.419 Encounter for gynecological examination (general) (routine) without abnormal findings (principal) | CPT/HCPCS: G0101 ==

== ENCOUNTER → 2023-06-04 13:15 | Outpatient (BNV) | payer MEDICARE, MEDICAID, SELFPAY | PROVIDERS: PCP Internal Medicine; Visit Provider Radiology Diagnostic Radiology | DX: Z12.31 Encounter for screening mammogram for malignant neoplasm of breast (principal) | CPT/HCPCS: 77063; 77067 ==

== ENCOUNTER 2023-06-04 13:18 | Outpatient (REF) | payer MEDICARE, MEDICAID, SELFPAY ==
--- NOTE | ~2023-06-04 | MM_ITS ---
EXAMINATION: MM SCREENING DIGITAL BREAST TOMOSYNTHESIS, BILATERAL CLINICAL INFORMATION: Screening. Asymptomatic. COMPARISON: Mammography: This study is compared with prior exams dating back to 2019. TECHNIQUE: Digital breast tomosynthesis is performed in both the craniocaudal and mediolateral oblique views along with computer-aided detection (CAD). Synthesized 2D images are generated from the tomosynthesis. FINDINGS: There are scattered areas of fibroglandular density (ACR BI-RADS breast composition Category b). There are no significant masses, abnormal calcifications, or other abnormalities. There is an unchanged lobulated, benign focal asymmetry in the upper outer quadrant of the right breast. MM/MM tomosynthesis screening BI IMPRESSION: No mammographic evidence of malignancy. ASSESSMENT: BI-RADS BI-RADS 1 - Negative RECOMMENDATION: Routine annual mammography screening. 1 year F/U This examination should not preclude the clinical evaluation of a suspicious palpable abnormality. This patient's information was entered into a reminder system with a target due date for their next mammogram.
--- NOTE | ~2023-06-04 | MM_ITS ---
EXAMINATION: BONE DENSITOMETRY CLINICAL INDICATION: Other specified disorders of bone density and structure, left thigh. COMPARISON: Baseline BD dated 08/14/2020. TECHNIQUE: Using a [employer] DXA System (software version: 13.1) manufactured by [employer], dual-energy x-ray absorptiometry was performed of the lumbar spine and left hip. The images are of good technical quality. Summary results are attached. FINDINGS: LEFT FEMUR, NECK: Current: BMD 0.719 g/cm2, Z-score -2.0, T-score -2.3, osteopenia. Baseline: BMD 0.886 g/cm2. LEFT FEMUR, TOTAL: Current: BMD 0.777 g/cm2, Z-score -2.0, T-score -1.8, osteopenia, 18.8% decrease from baseline (<5% change is not significant). Baseline: BMD 0.957 g/cm2. AP SPINE L1-L4: Current: BMD 1.152 g/cm2, Z-score -0.6, T-score -0.2, normal, 7.0% increase from baseline (<5% change is not significant). Baseline: BMD 1.077 g/cm2. IDENTIFIED RISK FACTORS: Secondary osteoporosis (early menopause). HISTORY OF FRACTURE: None listed. MEDICATIONS: None listed. MM/XR DEXA axial skeleton IMPRESSION: 1. DIAGNOSIS: Osteopenia based on the lowest T-score value of -2.3 in the femoral neck applying World Health Organization criteria. 2. 10-YEAR FRACTURE RISK PREDICTION, FRAX: Major osteoporotic fracture (clinical spine, forearm, hip or shoulder) 7.1%. Hip fracture 1.0%. 3. Treatment Recommendations: NOF guidelines recommend consideration for treatment in postmenopausal women and men age 50 and older presenting with the following: -A hip or vertebral (clinical or morphometric) fracture. -T-score less than or equal to -2.5 at the femoral neck or spine after appropriate evaluation to exclude secondary causes. -Low bone mass at the hip or spine and a 10-year fracture probability by FRAX of greater than or equal to 3% for hip fracture or greater than or equal to 20% for major osteoporotic fracture based on the [place] adapted WHO algorithm. 4. Other Recommendations: All treatment decisions require clinical judgment and consideration of individual patient factors, including patient preferences, comorbidities, previous drug use, risk factors not captured in the FRAX model (e.g. frailty, falls, vitamin D deficiency, increased bone turnover, interval significant decline in bone density) and possible under or overestimation of fracture risk by FRAX. Additional medical evaluation for secondary cause of low bone mineral density may be appropriate. FUTURE SCAN RECOMMENDATION: People with diagnosed cases of osteoporosis or at high risk for fracture should have regular bone mineral density tests. For patients eligible for Medicare, routine testing is allowed once every 2 years. The testing frequency can be increased to one year for patients who have rapidly progressing disease, those who are receiving or discontinuing medical therapy to restore bone mass, or have additional risk factors.
== END 2023-06-04 13:19 | disposition home or self-care (01) ==
LOC: HO.MAMMO 13:18
PROVIDERS: PCP Internal Medicine; Visit Provider Internal Medicine
DX: Z12.31 Encounter for screening mammogram for malignant neoplasm of breast (principal); Z13.820 Encounter for screening for osteoporosis; M85.852 Other specified disorders of bone density and structure, left thigh; Z78.0 Asymptomatic menopausal state
CPT/HCPCS: 77063; 77067; 77080

== ENCOUNTER 2023-07-30 10:08 | Day surgery (SDC) | payer MEDICARE, MEDICAID, SELFPAY ==
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
--- NOTE | 2023-07-30 13:19 | PC.NURSE ---
Spoke with Maria Del Carmen program production specialist [facility] ([phone]) where patient resides. pt is own guardian and signs for self.
[2023-07-30 13:52] VITALS: BMI 29.2
[2023-07-30 13:53] VITALS: BP 111/77; PULSE 66; RESP 16; TEMP 36.4; O2SAT 96
--- NOTE | 2023-07-30 14:07 | HO.OPN-COLON ---
Colonoscopy Operative Note Operative Note Date of Service: 07/30/23 Narrative: COLONOSCOPY TILL CECUM WITH SNARE POLYPECTOMY, SUBMUCOSAL INJECTION, AND HEMOCLIP PLACEMENT. Pre-op diagnosis: Colon cancer screening, positive Cologuard. Post-op diagnosis:? Colon polyps, Diverticulosis, hemorrhoids, melanosis coli Endoscopist:? Adwoa Ortega MD Anesthesia:?MAC Consent: Indications for the procedure and potential complications of bleeding, perforation, reaction to medications and missed diagnosis were discussed with the patient and informed consent was obtained. Instrument: Olympus PCF H 190 L variable stiffness pediatric colonoscope Monitoring: Vital signs and clinical assessment, intermittent blood pressure monitoring, continuous EKG monitoring, Pulse oximetry and Carbon Dioxide monitoring were done throughout the procedure. Please see anesthesia flowsheet. Colon withdrawl time was 32 minutes. Procedure: The patient was placed in the left lateral decubitis position and pre-procedure medications were administered. After a digital rectal examination of the ano-rectum, the video colonoscope was inserted into the rectum and advanced through the colon to the cecum. The colonoscope was slowly withdrawn in a retrograde panoramic fashion and the colon mucosa was carefully examined including a retroflexed view of the rectum. Findings and interventions are described below. Procedure Difficulty: Colon was long and there was spasm and some loop formation. LLQ pressure was applied to intubate the cecum/ascending colon Findings: Terminal Ileum: Not evaluated Cecum: Mild melanosis coli thorughout the entire colon Ascending Colon: Mild melanosis coli thorughout the entire colon Transverse Colon: Mild melanosis coli thorughout the entire colonl Descending Colon: Mild melanosis coli thorughout the entire colonl Moderate diverticulosis Sigmoid Colon: A 10 mm sessile polyp - removed with a hot snare. A 1.8 to 2 cms polyp on a long stalk - removed with a hot snare. Polypectomy site was closed with 2 hemoclips and marked by Kassandra. Severe diverticulosis Two 7-8 mm sessile polyps at 25 cms - removed with a hot and cold snare. Mild melanosis coli thorughout the entire colonl Rectum: Normal Ano-rectum: Moderate internal hemorrhoids Colon preparation: Good after copious irrigation. Pacific Bowel Preparation Scale Right colon; 2 Transverse colon: 2 Left colon; 2 (0 = Unprepared colon segment with mucosa not seen due to solid stool that cannot be cleared. 1 = Portion of mucosa of the colon segment seen, but other areas of the colon segment not well seen due to staining, residual stool and/or opaque liquid. 2 = Minor amount of residual staining, small fragments of stool and/or opaque liquid, but mucosa of colon segment seen well. 3 = Entire mucosa of colon segment seen well with no residual staining, small fragments of stool or opaque liquid) Impression and Post Procedure Diagnosis: Colonoscopy Findings: Two small and two medium sized polyps were removed Moderate to severe diverticulosis seen in the left colon Mild melanosis coli thorughout the entire colonl Moderate hemorrhoids on retroflexed exam. Plan: Pt has a FU appointment on 08/11/23 with CARMEN Harris. Repeat Colonoscopy in 2 years if polyps are adenomatous and 10 year if polyps are hyperplastic. Above findings were reviewed with the patient and relevant handouts were given and the discharge area.
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
--- NOTE | 2023-07-30 14:51 | HO.POSTANES ---
Post Anesthesia Evaluation Post Anesthesia Evaluation Date of Service: 07/30/23 Vital Signs: Vital Signs Temp Pulse Resp BP Pulse Ox O2 Del Method 07/30/23 13:53 97.5 F 66 16 111/77 96 Room Air Anesthesia: Monitored Mental Status: Awake Pain Control: Satisfactory Nausea/Vomiting: None Hydration: Adequate Anesthesia-Related Issues: No Anes. Related Issues
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
[2023-07-30 15:10] VITALS: BP 111/70; PULSE 63; RESP 16; TEMP 36.5; O2SAT 98
--- NOTE | 2023-07-30 15:18 | HO.POSTANES ---
Post Anesthesia Evaluation Post Anesthesia Evaluation Date of Service: 07/30/23 Vital Signs: Vital Signs Temp Pulse Resp BP Pulse Ox O2 Del Method 07/30/23 15:10 97.7 F 63 16 111/70 98 Room Air 07/30/23 13:53 97.5 F 66 16 111/77 96 Room Air Anesthesia: Monitored Mental Status: Awake Pain Control: Satisfactory Nausea/Vomiting: None Hydration: Adequate Anesthesia-Related Issues: No Anes. Related Issues
[2023-07-30 15:25] VITALS: BP 132/75; PULSE 61; RESP 14; O2SAT 95
[2023-07-30 15:40] VITALS: BP 135/90; PULSE 59; RESP 15; TEMP 36.6; O2SAT 95
== END 2023-07-30 16:16 | disposition home or self-care (01) ==
PROVIDERS: PCP Internal Medicine; Visit Provider Internal Medicine Gastroenterology
PROC: 0DJD8ZZ Inspection of Lower Intestinal Tract, Via Natural or Artificial Opening Endoscopic (ICD-10-PCS; CPT 45378; principal; 2023-07-30 11:50)
DX: R19.5 Other fecal abnormalities (principal); D12.5 Benign neoplasm of sigmoid colon; K57.30 Diverticulosis of large intestine without perforation or abscess without bleeding; K63.89 Other specified diseases of intestine; K56.2 Volvulus; K64.8 Other hemorrhoids; I10 Essential (primary) hypertension; G40.409 Other generalized epilepsy and epileptic syndromes, not intractable, without status epilepticus; I69.351 Hemiplegia and hemiparesis following cerebral infarction affecting right dominant side; Z99.3 Dependence on wheelchair
CPT/HCPCS: 45385; 45381; 88305; J2704

== ENCOUNTER → 2023-07-30 10:08 | Outpatient (BNV) | payer MEDICARE, MEDICAID, SELFPAY | PROVIDERS: PCP Internal Medicine; Visit Provider Internal Medicine Gastroenterology | DX: Z12.11 Encounter for screening for malignant neoplasm of colon (principal); R19.5 Other fecal abnormalities; D12.5 Benign neoplasm of sigmoid colon; K63.89 Other specified diseases of intestine; K64.8 Other hemorrhoids; K57.90 Diverticulosis of intestine, part unspecified, without perforation or abscess without bleeding | CPT/HCPCS: 45381; 45385 ==

== ENCOUNTER 2023-08-11 10:39 | Outpatient (AMB) | payer MEDICARE, MEDICAID, SELFPAY ==
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
[2023-08-11 10:55] VITALS: BP 118/67; PULSE 68
== END 2023-08-11 12:21 | disposition home or self-care (01) ==
PROVIDERS: PCP Internal Medicine; Visit Provider Physician Assistant
DX: K57.30 Diverticulosis of large intestine without perforation or abscess without bleeding (principal); D12.5 Benign neoplasm of sigmoid colon; K64.9 Unspecified hemorrhoids; K63.89 Other specified diseases of intestine
CPT/HCPCS: 99213

== ENCOUNTER → 2023-08-11 10:39 | Outpatient (BNVA) | payer MEDICARE, MEDICAID, SELFPAY | PROVIDERS: PCP Internal Medicine; Visit Provider Physician Assistant | DX: Q43.8 Other specified congenital malformations of intestine (principal); K57.30 Diverticulosis of large intestine without perforation or abscess without bleeding; K64.9 Unspecified hemorrhoids; K63.89 Other specified diseases of intestine; D12.6 Benign neoplasm of colon, unspecified | CPT/HCPCS: 99212 ==

== ENCOUNTER 2023-08-25 08:17 | Outpatient (AMB) | payer MEDICARE, MEDICAID, SELFPAY ==
[2023-08-25 09:20] VITALS: BP 130/100; PULSE 75; TEMP 36.5; O2SAT 96; BMI 36.7
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
== END 2023-08-25 10:48 | disposition home or self-care (01) ==
PROVIDERS: PCP Internal Medicine; Visit Provider Internal Medicine
DX: L72.0 Epidermal cyst (principal)
CPT/HCPCS: 99213

== ENCOUNTER 2023-10-05 13:04 | Outpatient (AMB) | payer MEDICARE, MEDICAID, SELFPAY ==
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
[2023-10-05 13:25] VITALS: BP 128/80; PULSE 90; O2SAT 95
== END 2023-10-05 13:50 | disposition home or self-care (01) ==
PROVIDERS: PCP Internal Medicine; Visit Provider Internal Medicine
DX: L72.0 Epidermal cyst (principal)
CPT/HCPCS: 99213

== ENCOUNTER 2023-12-15 08:00 | Outpatient (AMB) | payer MEDICARE, MEDICAID, SELFPAY ==
[2023-12-15 08:07] VITALS: BP 112/78; PULSE 86; TEMP 36.7; O2SAT 96
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
== END 2023-12-15 08:37 | disposition home or self-care (01) ==
PROVIDERS: PCP Internal Medicine; Visit Provider Physician Assistant
DX: S00.83XA Contusion of other part of head, initial encounter (principal)

== ENCOUNTER → 2023-12-15 08:00 | Outpatient (BNVA) | payer MEDICARE, MEDICAID, SELFPAY | PROVIDERS: PCP Internal Medicine | DX: S00.83XA Contusion of other part of head, initial encounter (principal) | CPT/HCPCS: 99212 ==

== ENCOUNTER 2024-02-16 11:35 | Outpatient (AMB) | payer MEDICARE, MEDICAID, SELFPAY ==
[2024-02-16 11:54] VITALS: BP 132/80; PULSE 71; O2SAT 98
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
== END 2024-02-16 12:50 | disposition home or self-care (01) ==
PROVIDERS: PCP Internal Medicine; Visit Provider Internal Medicine
DX: Z00.00 Encounter for general adult medical examination without abnormal findings (principal); G40.309 Generalized idiopathic epilepsy and epileptic syndromes, not intractable, without status epilepticus; E66.9 Obesity, unspecified; Z86.0101 Personal history of adenomatous and serrated colon polyps; E78.5 Hyperlipidemia, unspecified; I10 Essential (primary) hypertension; M85.852 Other specified disorders of bone density and structure, left thigh; J45.20 Mild intermittent asthma, uncomplicated; F43.20 Adjustment disorder, unspecified

== ENCOUNTER → 2024-02-16 11:35 | Outpatient (BNVA) | payer MEDICARE, MEDICAID, SELFPAY | PROVIDERS: PCP Internal Medicine; Visit Provider Internal Medicine | DX: Z00.01 Encounter for general adult medical examination with abnormal findings (principal); E66.9 Obesity, unspecified; E78.5 Hyperlipidemia, unspecified; I10 Essential (primary) hypertension; M85.852 Other specified disorders of bone density and structure, left thigh; G40.309 Generalized idiopathic epilepsy and epileptic syndromes, not intractable, without status epilepticus; J45.20 Mild intermittent asthma, uncomplicated; F43.20 Adjustment disorder, unspecified; Z86.0101 Personal history of adenomatous and serrated colon polyps | CPT/HCPCS: 96127; 99396 ==

== ENCOUNTER 2024-02-18 08:40 | Outpatient (REF) | payer MEDICARE, MEDICAID, SELFPAY | END 2024-02-18 08:41 | disposition home or self-care (01) | LOC: HO.HMGCLDS 08:40 | PROVIDERS: Internal Medicine; Visit Provider Psychiatry & Neurology Neurology | DX: R56.9 Unspecified convulsions (principal) | CPT/HCPCS: 36415; 80175 ==

== ENCOUNTER 2024-05-10 11:08 | Outpatient (AMB) | payer MEDICARE, MEDICAID, SELFPAY ==
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
[2024-05-10 11:12] VITALS: BP 120/70
== END 2024-05-10 16:15 | disposition home or self-care (01) ==
LOC: HO.HWS 11:08
PROVIDERS: PCP Internal Medicine; Visit Provider Advanced Practice Midwife
DX: Z01.419 Encounter for gynecological examination (general) (routine) without abnormal findings (principal)
CPT/HCPCS: G0101

== ENCOUNTER 2024-05-10 11:08 | Outpatient (REF) | payer MEDICARE, MEDICAID, SELFPAY ==
[2024-05-10 18:00] LABS: Bacterial Vaginosis PCR NEGATIVE (Negative); Candida Group PCR NOT DETECTED (Not Detect); Candida glab krusei PCR NOT DETECTED (Not Detect); Trichomonas vaginalis PCR NOT DETECTED (Not Detect)
[2024-05-11 06:49] LABS: CT PCR NOT DETECTED (Not Detect.); NG PCR NOT DETECTED (Not Detect.)
== END 2024-05-10 11:09 | disposition home or self-care (01) ==
LOC: HO.LAB 11:08
PROVIDERS: PCP Internal Medicine; Visit Provider Advanced Practice Midwife
DX: Z01.419 Encounter for gynecological examination (general) (routine) without abnormal findings (principal); Z20.2 Contact with and (suspected) exposure to infections with a predominantly sexual mode of transmission
CPT/HCPCS: 81515; 87491; 87591; G0101

== ENCOUNTER 2024-05-10 11:48 | Outpatient (REF) | payer MEDICARE, MEDICAID, SELFPAY | END 2024-05-10 11:49 | disposition home or self-care (01) | LOC: HO.LNP 11:48 | PROVIDERS: Visit Provider Advanced Practice Midwife | DX: Z13.89 Encounter for screening for other disorder (principal) ==

== ENCOUNTER 2024-06-05 10:25 | Outpatient (REF) | payer MEDICARE, MEDICAID, SELFPAY | END 2024-06-05 10:26 | disposition home or self-care (01) | LOC: HO.MAMMO 10:25 | PROVIDERS: PCP Internal Medicine; Visit Provider Internal Medicine | DX: Z12.31 Encounter for screening mammogram for malignant neoplasm of breast (principal) | CPT/HCPCS: 77063; 77067 ==

== ENCOUNTER → 2024-06-05 11:00 | Outpatient (BNV) | payer MEDICARE, MEDICAID, SELFPAY | PROVIDERS: PCP Internal Medicine; Visit Provider Internal Medicine | DX: Z12.31 Encounter for screening mammogram for malignant neoplasm of breast (principal) | CPT/HCPCS: 77063; 77067 ==

== ENCOUNTER 2024-07-14 09:02 | Outpatient (AMB) | payer MEDICARE, MEDICAID, SELFPAY ==
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
[2024-07-14 09:47] VITALS: BP 116/74; PULSE 81; RESP 17; TEMP 36.7; O2SAT 94
== END 2024-07-14 10:22 | disposition home or self-care (01) ==
PROVIDERS: PCP Internal Medicine; Visit Provider Physician Assistant
DX: J06.9 Acute upper respiratory infection, unspecified (principal)

== ENCOUNTER 2024-07-14 09:02 | Outpatient (REF) | payer MEDICARE, MEDICAID, SELFPAY ==
[2024-07-14 15:19] LABS: Influenza A PCR NEGATIVE (Negative); Influenza B PCR NEGATIVE (Negative); Resp Syncy Virus RNA Qual PCR NEGATIVE (Negative); SARS COV2 PCR INHOUSE NEGATIVE (Negative)
== END 2024-07-14 09:03 | disposition home or self-care (01) ==
LOC: HO.LAB 09:02
PROVIDERS: Physician Assistant; PCP Internal Medicine
DX: J06.9 Acute upper respiratory infection, unspecified (principal); R09.89 Other specified symptoms and signs involving the circulatory and respiratory systems
CPT/HCPCS: 0241U; 99212

== ENCOUNTER 2024-08-02 09:46 | Outpatient (REF) | payer MEDICARE, MEDICAID, SELFPAY ==
[2024-08-02 14:08] LABS: Alanine Aminotransferase 11 U/L (0-31); Anion Gap 11 (12-20); Aspartate Amino Transferase 17 U/L (5-31); Blood Urea Nitrogen 16 mg/dL (9-16); Calcium 9.3 mg/dL (8.4-10.2); Carbon Dioxide 29 mmol/L (22-29); Chloride 105 mmol/L (96-108); Cholesterol 177 mg/dL (<200); Estimated Glomerular Filt Rate > 60; Glucose Fasting 89 mg/dL (60-99); HDL Cholesterol 37 mg/dL (>40); LDL Cholesterol Calculated 109 mg/dL (<100); Potassium 4.3 mmol/L (3.3-5.1); Sodium 141 mmol/L (135-145); Triglycerides 159 mg/dL (<150)
[2024-08-02 14:29] LABS: Vitamin D 25-OH Total 59.2 ng/mL (>30)
== END 2024-08-02 09:47 | disposition home or self-care (01) ==
LOC: HO.HMGCLDS 09:46
PROVIDERS: PCP Internal Medicine; Visit Provider Internal Medicine
DX: E78.5 Hyperlipidemia, unspecified (principal); I10 Essential (primary) hypertension
CPT/HCPCS: 36415; 80048; 80061; 82306; 84450; 84460

== ENCOUNTER 2024-08-16 09:07 | Outpatient (AMB) | payer MEDICARE, MEDICAID, SELFPAY ==
[2024-08-16 09:38] VITALS: BP 92/68; PULSE 77; RESP 14; TEMP 36.5; O2SAT 96
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
== END 2024-08-16 10:44 | disposition home or self-care (01) ==
LOC: HO.HMCC 09:08
PROVIDERS: PCP Internal Medicine; Visit Provider Internal Medicine
DX: I10 Essential (primary) hypertension (principal); E78.5 Hyperlipidemia, unspecified; L50.1 Idiopathic urticaria

== ENCOUNTER → 2024-08-16 09:07 | Outpatient (BNVA) | payer MEDICARE, MEDICAID, SELFPAY | PROVIDERS: PCP Internal Medicine; Visit Provider Internal Medicine | DX: I10 Essential (primary) hypertension (principal); E78.5 Hyperlipidemia, unspecified; L50.1 Idiopathic urticaria | CPT/HCPCS: 96127; 99212 ==